=== PATIENT | male | born 1940 | race Caucasian/White ===

== ENCOUNTER 2016-11-17 11:19 | Inpatient (IN) | payer MEDICARE, BC ==
[~2016-11-17] VITALS: Ht 180.3 cm; Wt 80.3 kg
[~2016-11-17 11:19] MED LIST: AMLO5TAB4 PO; ASPI-143 PO; ATOR20TA PO; ATOR40TA59 PO; HYDR25TA9 PO; LEVO25TA4 PO; MIRA50TA PO; PANT40TA3 PO; TERA10CA3 PO
[2016-11-17 13:15] VITALS: BP 124/81
[2016-11-17 14:17] LABS: BASO % 0 % (0-3); EOS % 0 % (0-3); HEMATOCRIT 40.1 % (39.0-53.0); HEMOGLOBIN 12.9 g/dL (13.0-17.5); LYMPH # 0.4 x10^3/uL (1.0-4.8); LYMPH % 5 % (24-48); MEAN CORPUSCULAR HEMOGLOBIN 29 pg (25-35); MEAN CORPUSCULAR HGB CONC 32 g/dL (31-37); MEAN CORPUSCULAR VOLUME 92 fL (79-100); MONO % 2 % (0-9); NEUT % 92 % (31-73); PLATELET COUNT 184 x10^3/uL (140-400); RED BLOOD COUNT 4.37 x10^6/uL (4.30-5.70); RED CELL DISTRIBUTION WIDTH 15.8 % (11.5-14.5); WHITE BLOOD COUNT 7.9 x10^3/uL (4.0-11.0)
--- NOTE | 2016-11-17 14:20 | EKG ---
[facility] [address] [place] [address] Test Date: 2016-11-17 Test Time: 14:19:25 Pat Name: LALO GRIMALDO Department: Room: [facility] Gender: M Glaze Carrier: : 1940 Requested By: KOBE KHAN Order Number: [id number] Reading MD: Measurements Intervals [place] Rate: 63 P: 38 KS: 146 QRS: 6 QRSD: 78 T: 26 QT: 394 QTc: 406 Interpretive Statements SINUS RHYTHM LOW LIMB LEAD VOLTAGE NO SPECIFIC ECG ABNORMALITIES RI6.01 Compared to ECG 08/20/2014 10:59:30 No significant changes
[2016-11-17 14:29] LABS: PROTHROMBIN TIME PATIENT 12.9 SEC (11.7-14.0)
[2016-11-17 14:35] LABS: CALCIUM 9.2 mg/dL (8.5-10.1); CREATININE 1.4 mg/dL (0.7-1.3); GFR 49.3; POTASSIUM 4.3 mmol/L (3.5-5.1)
[2016-11-17 15:00] VITALS: BP 120/78
[2016-11-17 15:26] LABS: % BASOS 1 % (0-3); % EOS 1 % (0-5); PLT ESTIMATE ADEQUATE (ADEQUATE)
--- NOTE | 2016-11-17 16:10 | RAD ---
EXAM: Chest one view. HISTORY: Bronchitis. COMPARISON: 08/20/2014. FINDINGS: A frontal view of the chest is obtained. Hyperinflation suggests chronic obstructive pulmonary disease. There are no confluent infiltrates. Prominence of the right peritracheal stripe is stable and likely from tortuous vasculature. There are atherosclerotic calcifications of the aorta. There is no pneumothorax or pleural effusion. The heart is not enlarged. The cardiac monitoring devices noted. There are chronic healed rib fractures bilaterally. IMPRESSION: 1. Suspect chronic obstructive pulmonary disease. No confluent infiltrates.
[2016-11-17] MEDS ORDERED: ACETAMINOPHEN 325 MG TABLET. PO PRN (17:00)
[2016-11-17] MEDS ORDERED: ONDANSETRON PF 4 MG/2 ML VIAL. IV PRN (17:00)
[2016-11-17] MEDS ORDERED: IV 1/2 NORMAL SALINE 1,000 ML IV ONE (17:00)
[2016-11-17] MEDS ORDERED: HYDROCODONE/APAP 5/325MG TABLET. PO PRN (17:00)
--- NOTE | 2016-11-17 17:02 | PDOC1 ---
History and Physical Date of Admission Date of Admission 11/17/16 Identification/Chief Complaint Chief Complaint weakness Problems: Source Source: Patient History of Present Illness History of Present Illness 76yo M, was sent by his first time PMD dr. Solis from [facility] for generalized weakness. pt is a poor historian, he would just stare at me and not answer anything. PER PMD, pt had ischemic stroke with mild left side weakness in 08/2016. Pt said since last Tuesday, very weak, generalized. No N/V, chest pain, diarrhea. chronic BM incontinence. He was treated for bronchitis in [facility] ER with steroid for 2 days so far, and azithromycin, still c/o cough with mild sputum. daughter said he chokes sometime. low po intake. Pt admit depression, but denies suicide, feeling guilty or down. Past Medical History Cardiovascular: HTN, Hyperlipidemia Pulmonary: COPD CENTRAL NERVOUS SYSTEM: TIA GI: GERD Heme/Onc: Cancer Psych: Anxiety, Addictions, Depression Renal/: Benign prostatic enlarg., Urinary Incontinence Endocrine: Hypothyroidism Past Surgical History Past Surgical History: Other Social History Smoke: <1 pack per day ALCOHOL: none Drugs: None Allergies Allergies Allergies Coded Allergies Type Severity Reaction Last Updated Verified No Known Drug Allergies 06/18/14 No ROS Review of System CONSTITUTIONAL: No fever or chills EYES: No recent changes SKIN: No rash or itching CARDIOVASCULAR: No chest pain, syncope, palpitations, or edema RESPIRATORY: No SOB or cough GASTROINTESTINAL: No nausea, vomiting or abdominal pain NEUROLOGICAL: No headaches or weakness ENDOCRINE: No cold or heat intolerance GENITOURINARY: No urgency or frequency of urination MUSCULOSKELETAL: No back pain or joint pain LYMPHATICS: No enlarged lymph nodes PSYCHIATRIC: No anxiety or depression Physical Exam Physical Exam GEN.: No apparent distress. Alert and oriented. HEENT: Head is normocephalic, atraumatic NECK: Supple. LUNGS: Clear to auscultation. HEART: RRR, S1, S2 present. Peripheral pulses intact ABDOMEN: Soft, nontender. Positive bowel sounds. EXTREMITIES: Without any cyanosis. strength bl symmetric, 4/5. NEUROLOGIC: Normal speech, normal tone PSYCHIATRIC: Normal affect, normal mood. SKIN: No ulcerations Labs Labs Laboratory Tests Test 11/17/16 14:05 White Blood Count 7.9x10^3/uL (4.0-11.0) Red Blood Count 4.37x10^6/uL (4.30-5.70) Hemoglobin 12.9g/dL (13.0-17.5) Hematocrit 40.1% (39.0-53.0) Mean Corpuscular Volume 92fL (79-100) Mean Corpuscular Hemoglobin 29pg (25-35) Mean Corpuscular Hemoglobin Concent 32g/dL (31-37) Red Cell Distribution Width 15.8% (11.5-14.5) Platelet Count 184x10^3/uL (140-400) Neutrophils (%) (Auto) 92% (31-73) Lymphocytes (%) (Auto) 5% (24-48) Monocytes (%) (Auto) 2% (0-9) Eosinophils (%) (Auto) 0% (0-3) Basophils (%) (Auto) 0% (0-3) Neutrophils # (Auto) 7.3x10^3uL (1.8-7.7) Lymphocytes # (Auto) 0.4x10^3/uL (1.0-4.8) Monocytes # (Auto) 0.2x10^3/uL (0.0-1.1) Eosinophils # (Auto) 0.0x10^3/uL (0.0-0.7) Basophils # (Auto) 0.0x10^3/uL (0.0-0.2) Segmented Neutrophils % 92% (35-66) Band Neutrophils % 2% (0-9) Lymphocytes % 4% (24-48) Eosinophils % 1% (0-5) Basophils % 1% (0-3) Platelet Estimate Adequate (ADEQUATE) Prothrombin Time 12.9SEC (11.7-14.0) Prothromb Time International Ratio 1.0 (0.8-1.1) Sodium Level 146mmol/L (136-145) Potassium Level 4.3mmol/L (3.5-5.1) Chloride Level 110mmol/L (98-107) Carbon Dioxide Level 28mmol/L (21-32) Anion Gap 8 (6-14) Blood Urea Nitrogen 30mg/dL (8-26) Creatinine 1.4mg/dL (0.7-1.3) Estimated GFR (Cockcroft-Gault) 49.3 Glucose Level 101mg/dL (70-99) Calcium Level 9.2mg/dL (8.5-10.1) Vitamin B12 Level 590pg/mL (247-911) Thyroid Stimulating Hormone (TSH) 1.594uIU/mL (0.358-3.74) Laboratory Tests Test 11/17/16 14:05 White Blood Count 7.9x10^3/uL (4.0-11.0) Red Blood Count 4.37x10^6/uL (4.30-5.70) Hemoglobin 12.9g/dL (13.0-17.5) Hematocrit 40.1% (39.0-53.0) Mean Corpuscular Volume 92fL (79-100) Mean Corpuscular Hemoglobin 29pg (25-35) Mean Corpuscular Hemoglobin Concent 32g/dL (31-37) Red Cell Distribution Width 15.8% (11.5-14.5) Platelet Count 184x10^3/uL (140-400) Neutrophils (%) (Auto) 92% (31-73) Lymphocytes (%) (Auto) 5% (24-48) Monocytes (%) (Auto) 2% (0-9) Eosinophils (%) (Auto) 0% (0-3) Basophils (%) (Auto) 0% (0-3) Neutrophils # (Auto) 7.3x10^3uL (1.8-7.7) Lymphocytes # (Auto) 0.4x10^3/uL (1.0-4.8) Monocytes # (Auto) 0.2x10^3/uL (0.0-1.1) Eosinophils # (Auto) 0.0x10^3/uL (0.0-0.7) Basophils # (Auto) 0.0x10^3/uL (0.0-0.2) Segmented Neutrophils % 92% (35-66) Band Neutrophils % 2% (0-9) Lymphocytes % 4% (24-48) Eosinophils % 1% (0-5) Basophils % 1% (0-3) Platelet Estimate Adequate (ADEQUATE) Prothrombin Time 12.9SEC (11.7-14.0) Prothromb Time International Ratio 1.0 (0.8-1.1) Sodium Level 146mmol/L (136-145) Potassium Level 4.3mmol/L (3.5-5.1) Chloride Level 110mmol/L (98-107) Carbon Dioxide Level 28mmol/L (21-32) Anion Gap 8 (6-14) Blood Urea Nitrogen 30mg/dL (8-26) Creatinine 1.4mg/dL (0.7-1.3) Estimated GFR (Cockcroft-Gault) 49.3 Glucose Level 101mg/dL (70-99) Calcium Level 9.2mg/dL (8.5-10.1) Vitamin B12 Level 590pg/mL (247-911) Thyroid Stimulating Hormone (TSH) 1.594uIU/mL (0.358-3.74) VTE Prophylaxis Ordered VTE Prophylaxis Devices: Yes VTE Pharmacological Prophylaxi: Yes Assessment/Plan Assessment/Plan 1. generalized weakness 2. h/o STROKE with mild left weakness 3. COpd 4. bronchitis 5. CKD3 6. hypothyroidism 7. htn 8. hld 9. mild dysphagia 10. depression plan: 1. check cbc, bmp, tsh, b12 2. neuro consult 3. ptot 4. SW for rehab if needed later 5. cont home meds, finish prednisone and susy for another 3ds add lexapra swallow eval 1/2 Saline for 1 L DUONEB dvt ppx add KOBE Santa MD Nov 17, 2016 17:02
[2016-11-17] MEDS ORDERED: ALBUTEROL SULFATE 2.5 MG/3 ML NEBU. NEB PRN (17:15)
[2016-11-17] MEDS ORDERED: CHOL500050 PO (17:47)
[2016-11-17] MEDS ORDERED: OXYB10TA PO (17:47)
[2016-11-17] MEDS ORDERED: B12/1TAB2 PO (17:47)
[2016-11-17] MEDS: PREDNISONE 20 MG TABLET PO SCH (17:49)
[2016-11-17 19:00] VITALS: BP 123/75
--- NOTE | 2016-11-17 19:12 | PDOC2 ---
NEUROLOGY CONSULT Date of Admission Date of Admission DATE: 11/17/16 TIME: 19:05 Reason for Consult Reason for Consult: IMPRESSION: Generalized weakness x 4 days. Hypothyroidism. HTN HLD COPD Anxiety Depression Smoking Cardiac Mettronic in place. RECOMMENDATIONS/PLAN: C-spine CT w/o contrast. Lab: see orders. Treat medical diseases. OT/PT. HISTORY OF THE PRESENT ILLNESS: 76-y-old Male patient with above medical disease developed symptoms of generalized weakness for 4 days before admission. His cranial nerves are not affected. No sensory deficits. No urinary or bowel dysfunction. PAST MEDICAL HISTORY: Please see above. PAST SURGERY HISTORY: No major surgery recently. ALLERGY: Unknown MEDICATIONS: Refer to [facility] HISTORY: Non contributory. SOCIAL HISTORY: Denies current drinking and illicit drug use. He smokes < 1 pack a day. REVIEW OF SYSTEMS: Constitutional: No malnutrition, weight loss, cachexia. Head: No traumatic brain or head injury. Skin: No edema, or rash. Ear: No infection, tinnitus. Eyes: No vision loss or color blindness. Nose: No bleeding or purulent discharges. Hearing: Hearing decrease. Neck: No injury. Cardiac: HTN, HLD. Pulmonary: COPD GI: No GI ulcer, GI bleeding. Urinary/genital: BPH Endocrinologic: hypothyroidism. Skeletomuscular: Generalized weakness. Neurological: see HP. Psychiatric: Denies drug use/abuse. Otherwise, not -ijdrs review of systems. PHYSICAL EXAMINATION: General appearance is in subacute distress. HEENT: Normocephalic and nontraumatic. Eyes, nose, ears, and throat are unremarkable. Neck is supple. No lymphadenopathy. No crepitus. Cardiovascular: S1, S2, regular rate and rhythm. Pulmonary: Clear to auscultation bilaterally. Abdomen: Bowel sounds are positive. Abdomen is soft, nontender, and nondistended. Extremities: No rash, lesions, or edema. No restriction of range of motion NEUROLOGICAL EXAMINATION: Alert Oriented to time, place and person. PERRL. EOMI. CN: no focal findings. Muscle tone: within normal. Muscle strength: 4 DTR: 2 Plantar reflex: Flexor response bilaterally Gait: not examined in bed. Sensory exam: no abnormal findings. No cerebellar signs elicited. F-T-N test fine. Current Medications Current Medications Current Medications Ondansetron HCl (Zofran) 4 mg PRN Q6HRS PRN IV NAUSEA/VOMITING; Start 11/17/16 at 17:00 Acetaminophen/ Hydrocodone Bitart (Lortab 5/325) 1 tab PRN Q4HRS PRN PO MILD PAIN; Start 11/17/16 at 17:00 Acetaminophen (Tylenol) 650 mg PRN Q6HRS PRN PO MILD PAIN / TEMP; Start at 17:00 Heparin Sodium (Porcine) 5000 unit 5,000 unit Q8HRS SQ ; Start 11/17/16 at 22:00 Sodium Chloride (Iv Sodium Chloride 0.45%) 1,000 ml @ 100 mls/hr 1X ONCE IV ; Start 11/17/16 at 17:00; Stop 11/18/16 at 02:59 Escitalopram Oxalate (Lexapro) 10 mg DAILY PO ; Start 11/18/16 at 09:00 Doxycycline Hyclate (Vibra-Tab) 100 mg BID PO ; Start 11/17/16 at 21:00 Albuterol Sulfate (Ventolin Neb Soln) 2.5 mg PRN Q4HRS PRN NEB SHORTNESS OF BREATH; Start 11/17/16 at 17:15 Albuterol/ Ipratropium (Duoneb) 3 ml RTQID NEB ; Start 11/17/16 at 20:00 Azithromycin (Zithromax) 250 mg DAILY PO ; Start 11/17/16 at 18:30 Prednisone (Prednisone) 60 mg DAILYWBKFT PO ; Start 11/17/16 at 18:30; Stop 11/19 at 08:01 Active Scripts Active Lite Coat Aspirin (Aspirin) 325 Mg Tablet 325 Mg PO DAILY PRN 30 Days Atorvastatin Calcium 40 Mg Tablet 1 Tab PO DAILY PRN 30 Days Reported Vitamin D (Cholecalciferol (Vitamin D3)) 50,000 Unit Capsule 50,000 Unit PO WEEKLY Utyjt-Cbkfqnrllb-Arnffzfgc Tb (B12/Levomefolate Calcium/B-6) 1 Each Tablet 1 Each PO DAILY08 Oxybutynin Chloride Er (Oxybutynin Chloride) 10 Mg Tab.er.24 10 Mg PO HS PRN Levothyroxine Sodium 25 Mcg Tablet 25 Mcg PO DAILYAC Allergies Allergies: Coded Allergies: No Known Drug Allergies (Unverified , 06/18/14) Vitals VITALS Vital Signs Date Time Temp Pulse Resp B/P Pulse Ox O2 Delivery O2 Flow Rate FiO2 11/17/16 15:00 96.1 66 18 120/78 96 Room Air 96.1 Labs Labs Laboratory Tests Test 11/17/16 14:05 White Blood Count 7.9x10^3/uL (4.0-11.0) Red Blood Count 4.37x10^6/uL (4.30-5.70) Hemoglobin 12.9g/dL (13.0-17.5) Hematocrit 40.1% (39.0-53.0) Mean Corpuscular Volume 92fL (79-100) Mean Corpuscular Hemoglobin 29pg (25-35) Mean Corpuscular Hemoglobin Concent 32g/dL (31-37) Red Cell Distribution Width 15.8% (11.5-14.5) Platelet Count 184x10^3/uL (140-400) Neutrophils (%) (Auto) 92% (31-73) Lymphocytes (%) (Auto) 5% (24-48) Monocytes (%) (Auto) 2% (0-9) Eosinophils (%) (Auto) 0% (0-3) Basophils (%) (Auto) 0% (0-3) Neutrophils # (Auto) 7.3x10^3uL (1.8-7.7) Lymphocytes # (Auto) 0.4x10^3/uL (1.0-4.8) Monocytes # (Auto) 0.2x10^3/uL (0.0-1.1) Eosinophils # (Auto) 0.0x10^3/uL (0.0-0.7) Basophils # (Auto) 0.0x10^3/uL (0.0-0.2) Segmented Neutrophils % 92% (35-66) Band Neutrophils % 2% (0-9) Lymphocytes % 4% (24-48) Eosinophils % 1% (0-5) Basophils % 1% (0-3) Platelet Estimate Adequate (ADEQUATE) Prothrombin Time 12.9SEC (11.7-14.0) Prothromb Time International Ratio 1.0 (0.8-1.1) Sodium Level 146mmol/L (136-145) Potassium Level 4.3mmol/L (3.5-5.1) Chloride Level 110mmol/L (98-107) Carbon Dioxide Level 28mmol/L (21-32) Anion Gap 8 (6-14) Blood Urea Nitrogen 30mg/dL (8-26) Creatinine 1.4mg/dL (0.7-1.3) Estimated GFR (Cockcroft-Gault) 49.3 Glucose Level 101mg/dL (70-99) Calcium Level 9.2mg/dL (8.5-10.1) Creatine Kinase 20U/L (39-308) Vitamin B12 Level 590pg/mL (247-911) Thyroid Stimulating Hormone (TSH) 1.594uIU/mL (0.358-3.74) Laboratory Tests Test 11/17/16 14:05 White Blood Count 7.9x10^3/uL (4.0-11.0) Red Blood Count 4.37x10^6/uL (4.30-5.70) Hemoglobin 12.9g/dL (13.0-17.5) Hematocrit 40.1% (39.0-53.0) Mean Corpuscular Volume 92fL (79-100) Mean Corpuscular Hemoglobin 29pg (25-35) Mean Corpuscular Hemoglobin Concent 32g/dL (31-37) Red Cell Distribution Width 15.8% (11.5-14.5) Platelet Count 184x10^3/uL (140-400) Neutrophils (%) (Auto) 92% (31-73) Lymphocytes (%) (Auto) 5% (24-48) Monocytes (%) (Auto) 2% (0-9) Eosinophils (%) (Auto) 0% (0-3) Basophils (%) (Auto) 0% (0-3) Neutrophils # (Auto) 7.3x10^3uL (1.8-7.7) Lymphocytes # (Auto) 0.4x10^3/uL (1.0-4.8) Monocytes # (Auto) 0.2x10^3/uL (0.0-1.1) Eosinophils # (Auto) 0.0x10^3/uL (0.0-0.7) Basophils # (Auto) 0.0x10^3/uL (0.0-0.2) Segmented Neutrophils % 92% (35-66) Band Neutrophils % 2% (0-9) Lymphocytes % 4% (24-48) Eosinophils % 1% (0-5) Basophils % 1% (0-3) Platelet Estimate Adequate (ADEQUATE) Prothrombin Time 12.9SEC (11.7-14.0) Prothromb Time International Ratio 1.0 (0.8-1.1) Sodium Level 146mmol/L (136-145) Potassium Level 4.3mmol/L (3.5-5.1) Chloride Level 110mmol/L (98-107) Carbon Dioxide Level 28mmol/L (21-32) Anion Gap 8 (6-14) Blood Urea Nitrogen 30mg/dL (8-26) Creatinine 1.4mg/dL (0.7-1.3) Estimated GFR (Cockcroft-Gault) 49.3 Glucose Level 101mg/dL (70-99) Calcium Level 9.2mg/dL (8.5-10.1) Creatine Kinase 20U/L (39-308) Vitamin B12 Level 590pg/mL (247-911) Thyroid Stimulating Hormone (TSH) 1.594uIU/mL (0.358-3.74) HAILEY PAGAN MD Nov 17, 2016 19:12
[2016-11-17] MEDS: IPRATRPIUM/ALBUTEROL 0.5/2.5MG 3 ML NEBU. NEB SCH (19:24)
[2016-11-17] MEDS: AZITHROMYCIN 250 MG TABLET PO SCH (19:38)
[2016-11-17] MEDS: DOXYCYCLINE HYCLATE 100 MG TABLET PO SCH (21:15)
[2016-11-17] MEDS: HEPARIN PF for SUB-Q USE 5,000 UNIT/0.5 ML VIAL. SQ SCH (21:21)
[2016-11-17 23:00] VITALS: BP 153/78
[2016-11-18 03:00] VITALS: BP 114/63
[2016-11-18 04:28] LABS: BASO % 0 % (0-3); EOS % 1 % (0-3); HEMATOCRIT 34.9 % (39.0-53.0); HEMOGLOBIN 11.6 g/dL (13.0-17.5); LYMPH # 1.6 x10^3/uL (1.0-4.8); LYMPH % 15 % (24-48); MEAN CORPUSCULAR HEMOGLOBIN 29 pg (25-35); MEAN CORPUSCULAR HGB CONC 33 g/dL (31-37); MEAN CORPUSCULAR VOLUME 89 fL (79-100); MONO % 9 % (0-9); NEUT % 75 % (31-73); PLATELET COUNT 189 x10^3/uL (140-400); RED BLOOD COUNT 3.93 x10^6/uL (4.30-5.70); RED CELL DISTRIBUTION WIDTH 15.5 % (11.5-14.5); WHITE BLOOD COUNT 10.7 x10^3/uL (4.0-11.0)
[2016-11-18 04:43] LABS: CALCIUM 8.8 mg/dL (8.5-10.1); CREATININE 1.1 mg/dL (0.7-1.3); GFR 65.1; POTASSIUM 4.2 mmol/L (3.5-5.1)
[2016-11-18] MEDS: HEPARIN PF for SUB-Q USE 5,000 UNIT/0.5 ML VIAL. SQ SCH ×3 (05:55→20:48)
[2016-11-18 07:00] VITALS: BP 139/73
[2016-11-18] MEDS: IPRATRPIUM/ALBUTEROL 0.5/2.5MG 3 ML NEBU. NEB SCH ×4 (07:23→20:48)
--- NOTE | 2016-11-18 08:40 | RAD ---
EXAM: CT cervical spine without contrast. HISTORY: Upper and lower extremity weakness. TECHNIQUE: Computed tomography of the cervical spine was performed without intravenous contrast. COMPARISON: None. FINDINGS: Alignment is maintained. There is moderate osteoarthritis at C1-2. No fractures are identified. Degenerative disc disease is moderate to severe at C4-5, moderate from C5 through C7 and mild more superiorly. There is no prevertebral soft tissue swelling. Images of the lung apices reveal at least mild centrilobular emphysema. There are atherosclerotic calcifications bilaterally at the carotid bulbs. At C2-3, there is a small posterior disc bulge. Facet osteoarthritis is moderate on the left and mild on the right. Uncovertebral osteoarthritis is mild bilaterally. Left foraminal stenosis is mild. At C3-4, there is a small posterior disc bulge. Uncovertebral osteoarthritis is mild on the right greater than left. Facet osteoarthritis is moderate on the right greater than left. Foraminal stenosis is mild on the right. At C4-5, there is a moderate posterior disc-osteophyte complex. Uncovertebral osteoarthritis is moderate bilaterally. Central canal stenosis is mild. Foraminal stenosis is moderate on the left and mild on the right. There is moderate right lateral recess stenosis. At C5-6, there is a small posterior disc-osteophyte complex. Uncovertebral osteoarthritis is moderate to severe on the right greater than left. Foraminal stenosis is moderate on the left and moderate to severe on the right. At C6-7, there is a small posterior disc-osteophyte complex. Uncovertebral osteoarthritis is moderate bilaterally. Foraminal stenosis is mild on the right and moderate on the left. IMPRESSION: 1. Central canal stenosis is mild at C4-5. 2. Multilevel bilateral foraminal stenosis is a [id number] to severe on the right at C5-6. It is mild to moderate elsewhere as above. 3. Degenerative disc disease is moderate to severe at C4-5, moderate from C5 through C7 and mild more superiorly. 4. At least mild centrilobular emphysema in the apices. *One or more of the following individualized dose reduction techniques were utilized for this examination: 1. Automated exposure control. 2. Adjustment of the mA and/or kV according to patient size. 3. Use of iterative reconstruction technique.
[2016-11-18] MEDS: DOXYCYCLINE HYCLATE 100 MG TABLET PO SCH ×2 (09:01→20:43)
[2016-11-18] MEDS: PREDNISONE 20 MG TABLET PO SCH (09:02)
[2016-11-18] MEDS: ESCITALOPRAM 10 MG TABLET. PO SCH (09:02)
[2016-11-18] MEDS: AZITHROMYCIN 250 MG TABLET PO SCH (09:02)
[2016-11-18 11:00] VITALS: BP 126/67
[2016-11-18] MEDS ORDERED: BARIUM SULFATE 40% (APPLE) 148 GM PWD. PO ONE (12:30)
--- NOTE | 2016-11-18 12:42 | PDOC ---
PROGRESS NOTES Chief Complaint Chief Complaint 1. generalized weakness 2. s/p recnt STROKE with mild left weakness, post CVA syndrome 3. COPD 4. bronchitis 5. CKD3 6. hypothyroidism 7. htn 8. hld 9. mild dysphagia 10. depression History of Present Illness History of Present Illness PT and OT speech therapy, video swallow today plan home health had been in rehab many weeks new PCP Vitals Vitals Vital Signs Date Time Temp Pulse Resp B/P Pulse Ox O2 Delivery O2 Flow Rate FiO2 11/18/16 11:20 90 Room Air 11/18/16 11:00 97.6 60 16 126/67 97.6 Physical Exam General: Alert Heart: Regular rate, Normal S1, Normal S2 Lungs: Other (rales, mod volume) Abdomen: Normal bowel sounds Extremities: No clubbing Skin: No rashes Labs LABS Laboratory Tests Test 11/17/16 14:05 11/18/16 03:50 White Blood Count 7.9x10^3/uL (4.0-11.0) 10.7x10^3/uL (4.0-11.0) Red Blood Count 4.37x10^6/uL (4.30-5.70) 3.93x10^6/uL (4.30-5.70) Hemoglobin 12.9g/dL (13.0-17.5) 11.6g/dL (13.0-17.5) Hematocrit 40.1% (39.0-53.0) 34.9% (39.0-53.0) Mean Corpuscular Volume 92fL (79-100) 89fL (79-100) Mean Corpuscular Hemoglobin 29pg (25-35) 29pg (25-35) Mean Corpuscular Hemoglobin Concent 32g/dL (31-37) 33g/dL (31-37) Red Cell Distribution Width 15.8% (11.5-14.5) 15.5% (11.5-14.5) Platelet Count 184x10^3/uL (140-400) 189x10^3/uL (140-400) Neutrophils (%) (Auto) 92% (31-73) 75% (31-73) Lymphocytes (%) (Auto) 5% (24-48) 15% (24-48) Monocytes (%) (Auto) 2% (0-9) 9% (0-9) Eosinophils (%) (Auto) 0% (0-3) 1% (0-3) Basophils (%) (Auto) 0% (0-3) 0% (0-3) Neutrophils # (Auto) 7.3x10^3uL (1.8-7.7) 8.0x10^3uL (1.8-7.7) Lymphocytes # (Auto) 0.4x10^3/uL (1.0-4.8) 1.6x10^3/uL (1.0-4.8) Monocytes # (Auto) 0.2x10^3/uL (0.0-1.1) 1.0x10^3/uL (0.0-1.1) Eosinophils # (Auto) 0.0x10^3/uL (0.0-0.7) 0.1x10^3/uL (0.0-0.7) Basophils # (Auto) 0.0x10^3/uL (0.0-0.2) 0.0x10^3/uL (0.0-0.2) Segmented Neutrophils % 92% (35-66) Band Neutrophils % 2% (0-9) Lymphocytes % 4% (24-48) Eosinophils % 1% (0-5) Basophils % 1% (0-3) Platelet Estimate Adequate (ADEQUATE) Prothrombin Time 12.9SEC (11.7-14.0) Prothromb Time International Ratio 1.0 (0.8-1.1) Sodium Level 146mmol/L (136-145) 145mmol/L (136-145) Potassium Level 4.3mmol/L (3.5-5.1) 4.2mmol/L (3.5-5.1) Chloride Level 110mmol/L (98-107) 109mmol/L (98-107) Carbon Dioxide Level 28mmol/L (21-32) 25mmol/L (21-32) Anion Gap 8 (6-14) 11 (6-14) Blood Urea Nitrogen 30mg/dL (8-26) 26mg/dL (8-26) Creatinine 1.4mg/dL (0.7-1.3) 1.1mg/dL (0.7-1.3) Estimated GFR (Cockcroft-Gault) 49.3 65.1 Glucose Level 101mg/dL (70-99) 102mg/dL (70-99) Calcium Level 9.2mg/dL (8.5-10.1) 8.8mg/dL (8.5-10.1) Creatine Kinase 20U/L (39-308) Vitamin B12 Level 590pg/mL (247-911) 25-Hydroxy Vitamin D Total 46.2ng/mL (30.0-100.0) Thyroid Stimulating Hormone (TSH) 1.594uIU/mL (0.358-3.74) Review of Systems Review of Systems no nv.d Assessment and Plan Assessmemt and Plan Problems Medical Problems: (1) Generalized weakness Status: Acute Problems: Comment Review of Relevant I have reviewed the following items josse (where applicable) has been applied. Labs Laboratory Tests Test 11/17/16 14:05 11/18/16 03:50 White Blood Count 7.9x10^3/uL (4.0-11.0) 10.7x10^3/uL (4.0-11.0) Red Blood Count 4.37x10^6/uL (4.30-5.70) 3.93x10^6/uL (4.30-5.70) Hemoglobin 12.9g/dL (13.0-17.5) 11.6g/dL (13.0-17.5) Hematocrit 40.1% (39.0-53.0) 34.9% (39.0-53.0) Mean Corpuscular Volume 92fL (79-100) 89fL (79-100) Mean Corpuscular Hemoglobin 29pg (25-35) 29pg (25-35) Mean Corpuscular Hemoglobin Concent 32g/dL (31-37) 33g/dL (31-37) Red Cell Distribution Width 15.8% (11.5-14.5) 15.5% (11.5-14.5) Platelet Count 184x10^3/uL (140-400) 189x10^3/uL (140-400) Neutrophils (%) (Auto) 92% (31-73) 75% (31-73) Lymphocytes (%) (Auto) 5% (24-48) 15% (24-48) Monocytes (%) (Auto) 2% (0-9) 9% (0-9) Eosinophils (%) (Auto) 0% (0-3) 1% (0-3) Basophils (%) (Auto) 0% (0-3) 0% (0-3) Neutrophils # (Auto) 7.3x10^3uL (1.8-7.7) 8.0x10^3uL (1.8-7.7) Lymphocytes # (Auto) 0.4x10^3/uL (1.0-4.8) 1.6x10^3/uL (1.0-4.8) Monocytes # (Auto) 0.2x10^3/uL (0.0-1.1) 1.0x10^3/uL (0.0-1.1) Eosinophils # (Auto) 0.0x10^3/uL (0.0-0.7) 0.1x10^3/uL (0.0-0.7) Basophils # (Auto) 0.0x10^3/uL (0.0-0.2) 0.0x10^3/uL (0.0-0.2) Segmented Neutrophils % 92% (35-66) Band Neutrophils % 2% (0-9) Lymphocytes % 4% (24-48) Eosinophils % 1% (0-5) Basophils % 1% (0-3) Platelet Estimate Adequate (ADEQUATE) Prothrombin Time 12.9SEC (11.7-14.0) Prothromb Time International Ratio 1.0 (0.8-1.1) Sodium Level 146mmol/L (136-145) 145mmol/L (136-145) Potassium Level 4.3mmol/L (3.5-5.1) 4.2mmol/L (3.5-5.1) Chloride Level 110mmol/L (98-107) 109mmol/L (98-107) Carbon Dioxide Level 28mmol/L (21-32) 25mmol/L (21-32) Anion Gap 8 (6-14) 11 (6-14) Blood Urea Nitrogen 30mg/dL (8-26) 26mg/dL (8-26) Creatinine 1.4mg/dL (0.7-1.3) 1.1mg/dL (0.7-1.3) Estimated GFR (Cockcroft-Gault) 49.3 65.1 Glucose Level 101mg/dL (70-99) 102mg/dL (70-99) Calcium Level 9.2mg/dL (8.5-10.1) 8.8mg/dL (8.5-10.1) Creatine Kinase 20U/L (39-308) Vitamin B12 Level 590pg/mL (247-911) 25-Hydroxy Vitamin D Total 46.2ng/mL (30.0-100.0) Thyroid Stimulating Hormone (TSH) 1.594uIU/mL (0.358-3.74) Laboratory Tests Test 11/17/16 14:05 11/18/16 03:50 White Blood Count 7.9x10^3/uL (4.0-11.0) 10.7x10^3/uL (4.0-11.0) Red Blood Count 4.37x10^6/uL (4.30-5.70) 3.93x10^6/uL (4.30-5.70) Hemoglobin 12.9g/dL (13.0-17.5) 11.6g/dL (13.0-17.5) Hematocrit 40.1% (39.0-53.0) 34.9% (39.0-53.0) Mean Corpuscular Volume 92fL (79-100) 89fL (79-100) Mean Corpuscular Hemoglobin 29pg (25-35) 29pg (25-35) Mean Corpuscular Hemoglobin Concent 32g/dL (31-37) 33g/dL (31-37) Red Cell Distribution Width 15.8% (11.5-14.5) 15.5% (11.5-14.5) Platelet Count 184x10^3/uL (140-400) 189x10^3/uL (140-400) Neutrophils (%) (Auto) 92% (31-73) 75% (31-73) Lymphocytes (%) (Auto) 5% (24-48) 15% (24-48) Monocytes (%) (Auto) 2% (0-9) 9% (0-9) Eosinophils (%) (Auto) 0% (0-3) 1% (0-3) Basophils (%) (Auto) 0% (0-3) 0% (0-3) Neutrophils # (Auto) 7.3x10^3uL (1.8-7.7) 8.0x10^3uL (1.8-7.7) Lymphocytes # (Auto) 0.4x10^3/uL (1.0-4.8) 1.6x10^3/uL (1.0-4.8) Monocytes # (Auto) 0.2x10^3/uL (0.0-1.1) 1.0x10^3/uL (0.0-1.1) Eosinophils # (Auto) 0.0x10^3/uL (0.0-0.7) 0.1x10^3/uL (0.0-0.7) Basophils # (Auto) 0.0x10^3/uL (0.0-0.2) 0.0x10^3/uL (0.0-0.2) Segmented Neutrophils % 92% (35-66) Band Neutrophils % 2% (0-9) Lymphocytes % 4% (24-48) Eosinophils % 1% (0-5) Basophils % 1% (0-3) Platelet Estimate Adequate (ADEQUATE) Prothrombin Time 12.9SEC (11.7-14.0) Prothromb Time International Ratio 1.0 (0.8-1.1) Sodium Level 146mmol/L (136-145) 145mmol/L (136-145) Potassium Level 4.3mmol/L (3.5-5.1) 4.2mmol/L (3.5-5.1) Chloride Level 110mmol/L (98-107) 109mmol/L (98-107) Carbon Dioxide Level 28mmol/L (21-32) 25mmol/L (21-32) Anion Gap 8 (6-14) 11 (6-14) Blood Urea Nitrogen 30mg/dL (8-26) 26mg/dL (8-26) Creatinine 1.4mg/dL (0.7-1.3) 1.1mg/dL (0.7-1.3) Estimated GFR (Cockcroft-Gault) 49.3 65.1 Glucose Level 101mg/dL (70-99) 102mg/dL (70-99) Calcium Level 9.2mg/dL (8.5-10.1) 8.8mg/dL (8.5-10.1) Creatine Kinase 20U/L (39-308) Vitamin B12 Level 590pg/mL (247-911) 25-Hydroxy Vitamin D Total 46.2ng/mL (30.0-100.0) Thyroid Stimulating Hormone (TSH) 1.594uIU/mL (0.358-3.74) Medications Current Medications Ondansetron HCl (Zofran) 4 mg PRN Q6HRS PRN IV NAUSEA/VOMITING; Start 11/17/16 at 17:00 Acetaminophen/ Hydrocodone Bitart (Lortab 5/325) 1 tab PRN Q4HRS PRN PO MILD PAIN Last administered on 11/17/16 23:17; Start 11/17/16 at 17:00 Acetaminophen (Tylenol) 650 mg PRN Q6HRS PRN PO MILD PAIN / TEMP; Start at 17:00 Heparin Sodium (Porcine) 5000 unit 5,000 unit Q8HRS SQ Last administered on 11/18 05:55; Start 11/17/16 at 22:00 Sodium Chloride (Iv Sodium Chloride 0.45%) 1,000 ml @ 100 mls/hr 1X ONCE IV Last administered on 11/17/16 21:16; Start 11/17/16 at 17:00; Stop 11/18/16 at 02: 59; Status DC Escitalopram Oxalate (Lexapro) 10 mg DAILY PO Last administered on 11/18/16 09: 02; Start 11/18/16 at 09:00 Doxycycline Hyclate (Vibra-Tab) 100 mg BID PO Last administered on 11/18/16 09: 01; Start 11/17/16 at 21:00 Albuterol Sulfate (Ventolin Neb Soln) 2.5 mg PRN Q4HRS PRN NEB SHORTNESS OF BREATH; Start 11/17/16 at 17:15 Albuterol/ Ipratropium (Duoneb) 3 ml RTQID NEB Last administered on 11/18/16 11 :18; Start 11/17/16 at 20:00 Azithromycin (Zithromax) 250 mg DAILY PO Last administered on 11/18/16 09:02; Start 11/17/16 at 18:30 Prednisone (Prednisone) 60 mg DAILYWBKFT PO Last administered on 11/18/16 09:02 ; Start 11/17/16 at 18:30; Stop 11/19/16 at 08:01 Barium Sulfate (Varibar Thin Liquid) 148 gm 1X ONCE PO ; Start 11/18/16 at 12:30 ; Stop 11/18/16 at 12:31; Status DC Active Scripts Active Lite Coat Aspirin (Aspirin) 325 Mg Tablet 325 Mg PO DAILY PRN 30 Days Atorvastatin Calcium 40 Mg Tablet 1 Tab PO DAILY PRN 30 Days Reported Vitamin D (Cholecalciferol (Vitamin D3)) 50,000 Unit Capsule 50,000 Unit PO WEEKLY Rjbsa-Gecodilmou-Jodnxumkg Tb (B12/Levomefolate Calcium/B-6) 1 Each Tablet 1 Each PO DAILY08 Oxybutynin Chloride Er (Oxybutynin Chloride) 10 Mg Tab.er.24 10 Mg PO HS PRN Levothyroxine Sodium 25 Mcg Tablet 25 Mcg PO DAILYAC Vitals/I & O Vital Sign - Last 24 Hours 11/17/16 11/17/16 11/17/16 11/17/16 13:15 15:00 19:00 19:26 Temp 96.3 96.1 98.6 96.3 96.1 98.6 Pulse 70 66 68 Resp 18 18 18 B/P 124/81 120/78 123/75 Pulse Ox 98 96 96 97 O2 Delivery Room Air Room Air Room Air Room Air 11/17/16 11/17/16 11/17/16 11/18/16 19:35 23:00 23:17 00:15 Temp 97.8 97.8 Pulse 77 Resp 18 16 14 B/P 153/78 Pulse Ox 93 O2 Delivery Room Air Room Air Room Air Room Air 11/18/16 11/18/16 11/18/16 11/18/16 03:00 07:00 08:00 11:00 Temp 97.5 98.1 97.6 97.5 98.1 97.6 Pulse 65 61 60 Resp 18 18 16 B/P 114/63 139/73 126/67 Pulse Ox 94 98 97 O2 Delivery Room Air Room Air Room Air Room Air 11/18/16 11:20 Pulse Ox 90 O2 Delivery Room Air Intake and Output 11/17/16 11/17/16 11/18/16 15:00 23:00 07:00 Intake Total 1100 ml Balance 1100 ml ADRI POWELL MD Nov 18, 2016 12:42
--- NOTE | 2016-11-18 13:36 | RAD ---
Video dysphasia study, 11/18/2016: History: Silent aspiration The swallowing mechanism was examined fluoroscopically in the lateral projection while the patient ingested a variety of food materials mixed with barium. 3.8 minutes of fluoroscopy time was utilized. One fluoroscopic video loop was recorded by a member of the speech Department. The patient demonstrated slow transit of the barium materials from the mouth into the hypopharynx. There also tended to be a moderate delay in initiation of pharyngeal peristalsis with material spilling from the vallecula into the piriform sinuses. When ingesting the thin liquids there was a small amount of anisa aspiration into the trachea during swallowing. This did not elicit a cough reflex. This also occurred when the chin tuck maneuver was utilized. With the nectar consistency material was utilized there was deep laryngeal penetration without anisa aspiration. The patient ingested the honey thickened material without significant laryngeal penetration or aspiration. With the thicker materials and barium coated solids there tended to be a small to moderate amount of intermittent vallecular and piriform sinus residue. IMPRESSION: Aspiration of the thin liquids which abated when the thicker materials were utilized.
--- NOTE | 2016-11-18 14:39 | PDOC ---
PROGRESS NOTES Assessment Assessment Generalized weakness x 4 days. Hypothyroidism. HTN HLD COPD Anxiety Depression Smoking Degenerative spine and disc disease. C-spinal stenosis. Cardiac Meteronic in place. RECOMMENDATIONS/PLAN: Treat medical diseases. Please consult Dr. Coombs. OT/PT. C-spine CT: Degenerative C-spine and disc disease. Spinal stenosis. HISTORY OF THE PRESENT ILLNESS: 76-y-old Male patient with above medical disease developed symptoms of generalized weakness for 4 days before admission. His cranial nerves are not affected. No sensory deficits. No urinary or bowel dysfunction. Generalized weakness improved in some degree on 11/18. PAST MEDICAL HISTORY: Please see above. PAST SURGERY HISTORY: No major surgery recently. ALLERGY: Unknown MEDICATIONS: Refer to [facility] FAMILY HISTORY: Non contributory. SOCIAL HISTORY: Denies current drinking and illicit drug use. He smokes < 1 pack a day. REVIEW OF SYSTEMS: Constitutional: No malnutrition, weight loss, cachexia. Head: No traumatic brain or head injury. Skin: No edema, or rash. Ear: No infection, tinnitus. Eyes: No vision loss or color blindness. Nose: No bleeding or purulent discharges. Hearing: Hearing decrease. Neck: No injury. Cardiac: HTN, HLD. Pulmonary: COPD GI: No GI ulcer, GI bleeding. Urinary/genital: BPH Endocrinologic: hypothyroidism. Skeletomuscular: Generalized weakness. Neurological: see HP. Psychiatric: Denies drug use/abuse. Otherwise, not [id number] review of systems. PHYSICAL EXAMINATION: General appearance is in subacute distress. HEENT: Normocephalic and nontraumatic. Eyes, nose, ears, and throat are unremarkable. Neck is supple. No lymphadenopathy. No crepitus. Cardiovascular: S1, S2, regular rate and rhythm. Pulmonary: Clear to auscultation bilaterally. Abdomen: Bowel sounds are positive. Abdomen is soft, nontender, and nondistended. Extremities: No rash, lesions, or edema. No restriction of range of motion NEUROLOGICAL EXAMINATION: Alert Oriented to time, place and person. PERRL. EOMI. CN: no focal findings. Muscle tone: within normal. Muscle strength: 4 DTR: 2 Plantar reflex: Flexor response bilaterally Gait: not examined in chair. Sensory exam: no abnormal findings. No cerebellar signs elicited. F-T-N test fine. Objective Objective Vital Signs Date Time Temp Pulse Resp B/P Pulse Ox O2 Delivery O2 Flow Rate FiO2 3/9/17 11:20 90 Room Air 11/18/16 11:00 97.6 60 16 126/67 97.6 Intake and Output 11/18/16 07:00 Intake Total 1100 ml Balance 1100 ml Intake Oral 200 ml IV Total 900 ml # Voids 3 # Bowel Movements 5 Vitals Signs Vitals VS - Last 72 Hours, by Label Date Time Temp Pulse Resp B/P Pulse Ox O2 Delivery O2 Flow Rate FiO2 11/18/16 11:20 90 Room Air 11/18/16 11:00 97.6 60 16 126/67 97 Room Air 97.6 11/18/16 08:00 Room Air 11/18/16 07:00 98.1 61 18 139/73 98 Room Air 98.1 11/18/16 03:00 97.5 65 18 114/63 94 Room Air 97.5 11/18/16 00:15 14 Room Air 11/17/16 23:17 16 Room Air 11/17/16 23:00 97.8 77 18 153/78 93 Room Air 97.8 11/17/16 19:35 Room Air 11/17/16 19:26 97 Room Air 11/17/16 19:00 98.6 68 18 123/75 96 Room Air 98.6 11/17/16 15:00 96.1 66 18 120/78 96 Room Air 96.1 11/17/16 13:15 96.3 70 18 124/81 98 Room Air 96.3 Laboratory Laboratory Laboratory Tests Test 11/18/16 03:50 White Blood Count 10.7x10^3/uL (4.0-11.0) Red Blood Count 3.93x10^6/uL (4.30-5.70) Hemoglobin 11.6g/dL (13.0-17.5) Hematocrit 34.9% (39.0-53.0) Mean Corpuscular Volume 89fL (79-100) Mean Corpuscular Hemoglobin 29pg (25-35) Mean Corpuscular Hemoglobin Concent 33g/dL (31-37) Red Cell Distribution Width 15.5% (11.5-14.5) Platelet Count 189x10^3/uL (140-400) Neutrophils (%) (Auto) 75% (31-73) Lymphocytes (%) (Auto) 15% (24-48) Monocytes (%) (Auto) 9% (0-9) Eosinophils (%) (Auto) 1% (0-3) Basophils (%) (Auto) 0% (0-3) Neutrophils # (Auto) 8.0x10^3uL (1.8-7.7) Lymphocytes # (Auto) 1.6x10^3/uL (1.0-4.8) Monocytes # (Auto) 1.0x10^3/uL (0.0-1.1) Eosinophils # (Auto) 0.1x10^3/uL (0.0-0.7) Basophils # (Auto) 0.0x10^3/uL (0.0-0.2) Sodium Level 145mmol/L (136-145) Potassium Level 4.2mmol/L (3.5-5.1) Chloride Level 109mmol/L (98-107) Carbon Dioxide Level 25mmol/L (21-32) Anion Gap 11 (6-14) Blood Urea Nitrogen 26mg/dL (8-26) Creatinine 1.1mg/dL (0.7-1.3) Estimated GFR (Cockcroft-Gault) 65.1 Glucose Level 102mg/dL (70-99) Calcium Level 8.8mg/dL (8.5-10.1) Medication Medications Current Medications Acetaminophen (Tylenol) 650 mg PRN Q6HRS PRN PO MILD PAIN / TEMP; Start at 17:00 Acetaminophen/ Hydrocodone Bitart (Lortab 5/325) 1 tab PRN Q4HRS PRN PO MILD PAIN Last administered on 11/17/16 23:17; Start 11/17/16 at 17:00 Albuterol Sulfate (Ventolin Neb Soln) 2.5 mg PRN Q4HRS PRN NEB SHORTNESS OF BREATH; Start 11/17/16 at 17:15 Albuterol/ Ipratropium (Duoneb) 3 ml RTQID NEB Last administered on 11/18/16 11 :18; Start 11/17/16 at 20:00 Azithromycin (Zithromax) 250 mg DAILY PO Last administered on 11/18/16 09:02; Start 11/17/16 at 18:30 Barium Sulfate (Varibar Thin Liquid) 148 gm 1X ONCE PO Last administered on 12:30; Start 11/18/16 at 12:30; Stop 11/18/16 at 12:31; Status DC Doxycycline Hyclate (Vibra-Tab) 100 mg BID PO Last administered on 11/18/16 09: 01; Start 11/17/16 at 21:00 Escitalopram Oxalate (Lexapro) 10 mg DAILY PO Last administered on 11/18/16 09: 02; Start 11/18/16 at 09:00 Heparin Sodium (Porcine) 5000 unit 5,000 unit Q8HRS SQ Last administered on 11/18 14:04; Start 11/17/16 at 22:00 Ondansetron HCl (Zofran) 4 mg PRN Q6HRS PRN IV NAUSEA/VOMITING; Start 11/17/16 at 17:00 Prednisone (Prednisone) 60 mg DAILYWBKFT PO Last administered on 11/18/16 09:02 ; Start 11/17/16 at 18:30; Stop 11/19/16 at 08:01 Sodium Chloride (Iv Sodium Chloride 0.45%) 1,000 ml @ 100 mls/hr 1X ONCE IV Last administered on 11/17/16 21:16; Start 11/17/16 at 17:00; Stop 11/18/16 at 02: 59; Status DC Comment Review of Relevant I have reviewed the following items josse (where applicable) has been applied. HAILEY PAGAN MD Nov 18, 2016 14:38
[2016-11-18 15:00] VITALS: BP 209/59
[2016-11-18] MEDS: AMLODIPINE BESYLATE 5 MG TABLET PO SCH (15:49)
[2016-11-18 19:00] VITALS: BP 108/51
[2016-11-18 23:00] VITALS: BP 97/56
[2016-11-19 03:00] VITALS: BP 129/80
[2016-11-19] MEDS: HEPARIN PF for SUB-Q USE 5,000 UNIT/0.5 ML VIAL. SQ SCH ×3 (05:41→21:38)
[2016-11-19 07:00] VITALS: BP 145/70
[2016-11-19] MEDS: IPRATRPIUM/ALBUTEROL 0.5/2.5MG 3 ML NEBU. NEB SCH ×4 (07:17→20:14)
[2016-11-19] MEDS: AZITHROMYCIN 250 MG TABLET PO SCH (08:53)
[2016-11-19] MEDS: DOXYCYCLINE HYCLATE 100 MG TABLET PO SCH ×2 (08:53→21:32)
[2016-11-19] MEDS: ESCITALOPRAM 10 MG TABLET. PO SCH (08:54)
[2016-11-19] MEDS: PREDNISONE 20 MG TABLET PO SCH (08:54)
[2016-11-19] MEDS: AMLODIPINE BESYLATE 5 MG TABLET PO SCH (08:54)
--- NOTE | 2016-11-19 10:29 | PDOC ---
PROGRESS NOTES Subjective Subjective No new complaints. Objective Objective Vital Signs Date Time Temp Pulse Resp B/P Pulse Ox O2 Delivery O2 Flow Rate FiO2 11/19/16 08:54 70 145/70 11/19/16 07:18 97 Room Air 11/19/16 07:00 97.6 16 97.6 Intake and Output 11/19/16 07:00 Intake Total 200 ml Balance 200 ml Intake Oral 200 ml # Voids 4 Physical Exam Physical Exam He is alert and comfortable and working with speech pathology on swallowing. He is independent with his mobility. Assessment Assessment Problems Medical Problems: (1) Generalized weakness Status: Acute Plan Plan of Custodial with home health or out patient follow up by speech pathology. Comment Review of Relevant I have reviewed the following items josse (where applicable) has been applied. Labs Laboratory Tests Test 11/17/16 14:05 11/18/16 03:50 White Blood Count 7.9x10^3/uL (4.0-11.0) 10.7x10^3/uL (4.0-11.0) Red Blood Count 4.37x10^6/uL (4.30-5.70) 3.93x10^6/uL (4.30-5.70) Hemoglobin 12.9g/dL (13.0-17.5) 11.6g/dL (13.0-17.5) Hematocrit 40.1% (39.0-53.0) 34.9% (39.0-53.0) Mean Corpuscular Volume 92fL (79-100) 89fL (79-100) Mean Corpuscular Hemoglobin 29pg (25-35) 29pg (25-35) Mean Corpuscular Hemoglobin Concent 32g/dL (31-37) 33g/dL (31-37) Red Cell Distribution Width 15.8% (11.5-14.5) 15.5% (11.5-14.5) Platelet Count 184x10^3/uL (140-400) 189x10^3/uL (140-400) Neutrophils (%) (Auto) 92% (31-73) 75% (31-73) Lymphocytes (%) (Auto) 5% (24-48) 15% (24-48) Monocytes (%) (Auto) 2% (0-9) 9% (0-9) Eosinophils (%) (Auto) 0% (0-3) 1% (0-3) Basophils (%) (Auto) 0% (0-3) 0% (0-3) Neutrophils # (Auto) 7.3x10^3uL (1.8-7.7) 8.0x10^3uL (1.8-7.7) Lymphocytes # (Auto) 0.4x10^3/uL (1.0-4.8) 1.6x10^3/uL (1.0-4.8) Monocytes # (Auto) 0.2x10^3/uL (0.0-1.1) 1.0x10^3/uL (0.0-1.1) Eosinophils # (Auto) 0.0x10^3/uL (0.0-0.7) 0.1x10^3/uL (0.0-0.7) Basophils # (Auto) 0.0x10^3/uL (0.0-0.2) 0.0x10^3/uL (0.0-0.2) Segmented Neutrophils % 92% (35-66) Band Neutrophils % 2% (0-9) Lymphocytes % 4% (24-48) Eosinophils % 1% (0-5) Basophils % 1% (0-3) Platelet Estimate Adequate (ADEQUATE) Prothrombin Time 12.9SEC (11.7-14.0) Prothromb Time International Ratio 1.0 (0.8-1.1) Sodium Level 146mmol/L (136-145) 145mmol/L (136-145) Potassium Level 4.3mmol/L (3.5-5.1) 4.2mmol/L (3.5-5.1) Chloride Level 110mmol/L (98-107) 109mmol/L (98-107) Carbon Dioxide Level 28mmol/L (21-32) 25mmol/L (21-32) Anion Gap 8 (6-14) 11 (6-14) Blood Urea Nitrogen 30mg/dL (8-26) 26mg/dL (8-26) Creatinine 1.4mg/dL (0.7-1.3) 1.1mg/dL (0.7-1.3) Estimated GFR (Cockcroft-Gault) 49.3 65.1 Glucose Level 101mg/dL (70-99) 102mg/dL (70-99) Calcium Level 9.2mg/dL (8.5-10.1) 8.8mg/dL (8.5-10.1) Creatine Kinase 20U/L (39-308) Vitamin B12 Level 590pg/mL (247-911) 25-Hydroxy Vitamin D Total 46.2ng/mL (30.0-100.0) Thyroid Stimulating Hormone (TSH) 1.594uIU/mL (0.358-3.74) Medications Current Medications Ondansetron HCl (Zofran) 4 mg PRN Q6HRS PRN IV NAUSEA/VOMITING; Start 11/17/16 at 17:00 Acetaminophen/ Hydrocodone Bitart (Lortab 5/325) 1 tab PRN Q4HRS PRN PO MILD PAIN Last administered on 11/17/16 23:17; Start 11/17/16 at 17:00 Acetaminophen (Tylenol) 650 mg PRN Q6HRS PRN PO MILD PAIN / TEMP; Start at 17:00 Heparin Sodium (Porcine) 5000 unit 5,000 unit Q8HRS SQ Last administered on 05:41; Start 11/17/16 at 22:00 Sodium Chloride (Iv Sodium Chloride 0.45%) 1,000 ml @ 100 mls/hr 1X ONCE IV Last administered on 11/17/16 21:16; Start 11/17/16 at 17:00; Stop 11/18/16 at 02: 59; Status DC Escitalopram Oxalate (Lexapro) 10 mg DAILY PO Last administered on 11/19/16 08 :54; Start 11/18/16 at 09:00 Doxycycline Hyclate (Vibra-Tab) 100 mg BID PO Last administered on 11/19/16 08 :53; Start 11/17/16 at 21:00 Albuterol Sulfate (Ventolin Neb Soln) 2.5 mg PRN Q4HRS PRN NEB SHORTNESS OF BREATH; Start 11/17/16 at 17:15 Albuterol/ Ipratropium (Duoneb) 3 ml RTQID NEB Last administered on 11/19/16 07:17; Start 11/17/16 at 20:00 Azithromycin (Zithromax) 250 mg DAILY PO Last administered on 11/19/16 08:53; Start 11/17/16 at 18:30 Prednisone (Prednisone) 60 mg DAILYWBKFT PO Last administered on 11/19/16 08: 54; Start 11/17/16 at 18:30; Stop 11/19/16 at 08:01; Status DC Barium Sulfate (Varibar Thin Liquid) 148 gm 1X ONCE PO Last administered on 12:30; Start 11/18/16 at 12:30; Stop 11/18/16 at 12:31; Status DC Amlodipine Besylate (Norvasc) 5 mg DAILY PO Last administered on 11/19/16 08: 54; Start 11/18/16 at 15:45 Active Scripts Active Lite Coat Aspirin (Aspirin) 325 Mg Tablet 325 Mg PO DAILY PRN 30 Days Atorvastatin Calcium 40 Mg Tablet 1 Tab PO DAILY PRN 30 Days Reported Vitamin D (Cholecalciferol (Vitamin D3)) 50,000 Unit Capsule 50,000 Unit PO WEEKLY Lwsgr-Rnjywdmdmx-Zsblclxwl Tb (B12/Levomefolate Calcium/B-6) 1 Each Tablet 1 Each PO DAILY08 Oxybutynin Chloride Er (Oxybutynin Chloride) 10 Mg Tab.er.24 10 Mg PO HS PRN Levothyroxine Sodium 25 Mcg Tablet 25 Mcg PO DAILYAC Vitals/I & O Vital Sign - Last 24 Hours 11/18/16 11/18/16 11/18/16 11/18/16 11:00 11:20 15:00 15:49 Temp 97.6 97.5 97.6 97.5 Pulse 60 71 Resp 16 16 B/P 126/67 209/59 209/59 Pulse Ox 97 90 94 O2 Delivery Room Air Room Air Room Air 11/18/16 11/18/16 11/18/16 11/18/16 15:59 19:00 20:00 20:48 Temp 97.8 97.8 Pulse 75 Resp 16 B/P 108/51 Pulse Ox 92 O2 Delivery Room Air Room Air Room Air Room Air 11/18/16 11/19/16 11/19/16 11/19/16 23:00 03:00 07:00 07:18 Temp 97.6 97.3 97.6 97.6 97.3 97.6 Pulse 79 67 70 Resp 16 16 16 B/P 97/56 129/80 145/70 Pulse Ox 93 95 94 97 O2 Delivery Room Air Room Air Room Air Room Air 11/19/16 08:54 Pulse 70 B/P 145/70 Intake and Output 11/18/16 11/18/16 11/19/16 15:00 23:00 07:00 Intake Total 200 ml Balance 200 ml Nutrition Consultation Dietary Evaluation: Comments: monitor need for supplementation Expected Outcomes/Goals: to meet > 75% est nutr needs Malnutrition Findings: Reduced [employer] Strength: N/A Weight Status: Appropriate Fluid Accumulation (N/A): N/A FEMI BYNUM MD Nov 19, 2016 10:28
[2016-11-19 11:00] VITALS: BP 142/71
[2016-11-19] MEDS ORDERED: ESCI10TA PO (11:49)
[2016-11-19] MEDS ORDERED: DOXY100T PO (11:49)
--- NOTE | 2016-11-19 13:20 | CONS ---
DATE OF CONSULTATION: 11/18/2016 ATTENDING PHYSICIAN: Dr. Jerry. The patient was seen at the request of Dr. Gagnon for rehab evaluation. HISTORY OF PRESENT ILLNESS: This is a 76-year-old right-handed male. His family physician Dr. Henriquez at [facility]. The patient was admitted through the Emergency Room on 11/17/2016 with generalized weakness and he was noted with dehydration. The patient feels better today. The patient apparently had a cerebrovascular accident in 08/2016 and had gone through inpatient rehab at [facility] and also at [facility] and he has been home and he is doing alright. He lives with his two grandsons, and the patient apparently had been independent with his mobility and self-care at roller walker level. The patient also had a narrow-based quad cane. The patient lives in a ranch-style home, daughter and grandkids live with him, one step to enter the house. He uses a walker or cane most of the time walker to get around. He apparently fell when getting out of the bed, three or four times lately. He is getting home health physical therapy and has progress to walking without any assistive devices with PT sessions. The patient denies any pain. He denies any trouble with his bowel or bladder control. He had video dysphagia study done which revealed some aspiration on thin liquids, which corrected with thickened liquid diet. The patient denies any neck pain. He had CT scan of his cervical vertebrae which revealed multilevel degenerative disk disease and degenerative joint disease with some degree of central spinal stenosis at C4 and C5, and also multilevel neural foraminal compromise. The patient denies any neck pain or any numbness, tingling sensation in the extremities. PHYSICAL EXAMINATION: The patient, on physical examination today revealed an elderly male. He is alert, oriented to time, place, person and circumstance and follows commands appropriately, moves all 4 extremities voluntarily where he had 4+/5 grade muscle strength and deep tendon reflexes are 1-2+ and symmetrical and he had equal perception of touch and pinprick sensation bilaterally. His skin is intact. He is independent with bed mobility and transfers. Once up, he can walk with the walker or without the walker. He can walk on his tiptoes and on his heels without any loss of balance, but he had some difficulty trying to walk on a straight line, one foot in front of the other. No significant tenderness to palpate. No cervical spine or paraspinal muscles were noted at present time. ASSESSMENT: An elderly male with recent-onset cerebrovascular accident and cervical spinal stenosis with some high level balance problems and also dysphagia to thin liquids. He was admitted with dehydration. He also had frequent falls at home. RECOMMENDATIONS: Agree with the plan for physical therapy and occupational therapy to work on safety ____ transfers home when medically stable with outpatient or home health followup. Dr. Gagnon, I appreciate asking me to participate in the care of this interesting patient. I will be glad to follow him with you as needed for the rehabilitation. FEMI BYNUM MD DR: CAMERON/iglesia JOB#: [id number] / [id number]
--- NOTE | 2016-11-19 14:13 | RAD ---
EXAM: CT head without contrast. HISTORY: Weakness. Prior cerebrovascular accident. TECHNIQUE: Computed tomography of the head was performed without intravenous contrast. COMPARISON: 08/20/2014. FINDINGS: There is no intracranial hemorrhage. Multiple moderately sized chronic lacunar infarcts within the basal ganglia on the right greater than left are new since 2013. There is jssx-qh-pdksezuo chronic small vessel ischemic white matter change elsewhere. Prominence of the lateral ventricles and hemispheric sulci indicate moderate to severe atrophy. There is a mucus retention cyst in the right maxillary sinus. The orbits are unremarkable. The temporal bones are unremarkable. The calvarium reveals no suspicious lesions. IMPRESSION: 1. No acute intracranial findings. 2. Multiple bilateral moderately sized basal ganglia lacunar infarctions are new since 2013. 3. Moderate to severe atrophy. *One or more of the following individualized dose reduction techniques were utilized for this examination: 1. Automated exposure control. 2. Adjustment of the mA and/or kV according to patient size. 3. Use of iterative reconstruction technique.
[2016-11-19 15:00] VITALS: BP 134/72
--- NOTE | 2016-11-19 15:24 | PDOC3 ---
Discharge Summary Visit Information Date of Admission: Nov 17, 2016 Date of Discharge: Nov 19, 2016 Admitting Diagnosis: weakness Final Diagnosis 1. generalized weakness 2. s/p recnt STROKE with mild left weakness, post CVA syndrome 3. COPD w/ acute bronchitis 4. CKD3 5. hypothyroidism 6. htn 7. hld 8. mild dysphagia 9. depression Problems Medical Problems: (1) Bronchitis Status: Acute (2) Generalized weakness Status: Acute Brief Hospital Course Allergies Allergies Coded Allergies Type Severity Reaction Last Updated Verified No Known Drug Allergies 06/18/14 No Vital Signs Vital Signs Date Time Temp Pulse Resp B/P Pulse Ox O2 Delivery O2 Flow Rate FiO2 11/19/16 11:00 98.1 75 16 142/71 96 Room Air 98.1 Lab Results Laboratory Tests Test 11/18/16 03:50 White Blood Count 10.7x10^3/uL (4.0-11.0) Red Blood Count 3.93x10^6/uL (4.30-5.70) Hemoglobin 11.6g/dL (13.0-17.5) Hematocrit 34.9% (39.0-53.0) Mean Corpuscular Volume 89fL (79-100) Mean Corpuscular Hemoglobin 29pg (25-35) Mean Corpuscular Hemoglobin Concent 33g/dL (31-37) Red Cell Distribution Width 15.5% (11.5-14.5) Platelet Count 189x10^3/uL (140-400) Neutrophils (%) (Auto) 75% (31-73) Lymphocytes (%) (Auto) 15% (24-48) Monocytes (%) (Auto) 9% (0-9) Eosinophils (%) (Auto) 1% (0-3) Basophils (%) (Auto) 0% (0-3) Neutrophils # (Auto) 8.0x10^3uL (1.8-7.7) Lymphocytes # (Auto) 1.6x10^3/uL (1.0-4.8) Monocytes # (Auto) 1.0x10^3/uL (0.0-1.1) Eosinophils # (Auto) 0.1x10^3/uL (0.0-0.7) Basophils # (Auto) 0.0x10^3/uL (0.0-0.2) Sodium Level 145mmol/L (136-145) Potassium Level 4.2mmol/L (3.5-5.1) Chloride Level 109mmol/L (98-107) Carbon Dioxide Level 25mmol/L (21-32) Anion Gap 11 (6-14) Blood Urea Nitrogen 26mg/dL (8-26) Creatinine 1.1mg/dL (0.7-1.3) Estimated GFR (Cockcroft-Gault) 65.1 Glucose Level 102mg/dL (70-99) Calcium Level 8.8mg/dL (8.5-10.1) Brief Hospital Course Mr. Castillo is a 76 old male, admit with weakness, lethargy, cough was on z-pack, finished here, cont doxy 7 more days, did well with PT and OT, walked > 200 ft w/ walker speech therapy, video swallow went well no aspiration plan home health had been in rehab many weeks new PCP, Dr. Henriquez, pee f/u 1-2 weeks Discharge Information Scheduled B12/Levomefolate Calcium/B-6 (Fbfvc-Qrubefulfx-Opbadtnjx Tb) 1 EACH PO DAILY08 ( Reported) Cholecalciferol (Vitamin D3) (Vitamin D) 50,000 UNIT PO WEEKLY (Reported) Doxycycline Hyclate (Doxycycline Hyclate) 100 MG PO BID Escitalopram Oxalate (Escitalopram Oxalate) 10 MG PO DAILY Levothyroxine Sodium (Levothyroxine Sodium) 25 MCG PO DAILYAC (Reported) Scheduled PRN Aspirin (Lite Coat Aspirin) 325 MG PO DAILY PRN PRN scheduled Atorvastatin Calcium (Atorvastatin Calcium) 1 TAB PO DAILY PRN PRN hld Oxybutynin Chloride (Oxybutynin Chloride Er) 10 MG PO HS PRN PRN OVERACTIVE BLADDER (Reported) Discontinued Medications Amlodipine Besylate (Norvasc) 5 MG PO BID (Reported) Hydrochlorothiazide (Hydrochlorothiazide Tablet ) 25 MG PO DAILY (Reported) Mirabegron (Myrbetriq) 50 MG PO DAILY (Reported) Pantoprazole Sodium (Protonix) 1 TAB PO DAILY (Reported) Terazosin Hcl (Terazosin Hcl) 10 MG PO HS (Reported) Patient Instructions Patient Instructions isai >30 min ADRI POWELL MD Nov 19, 2016 15:24
[2016-11-19] MEDS: ASPIRIN 325 MG TABLET PO SCH (16:00)
--- NOTE | 2016-11-19 16:00 | PDOC ---
PROGRESS NOTES Chief Complaint Chief Complaint 1. generalized weakness 2. s/p recnt STROKE 3mos ago with mild left weakness, 3. COPD 4. bronchitis 5. CKD3 6. hypothyroidism 7. htn 8. hld 9. mild dysphagia 10. depression History of Present Illness History of Present Illness PT and OT speech therapy, video swallow today plan home health had been in rehab many weeks new PCP Vitals Vitals Vital Signs Date Time Temp Pulse Resp B/P Pulse Ox O2 Delivery O2 Flow Rate FiO2 11/19/16 11:00 98.1 75 16 142/71 96 Room Air 98.1 Physical Exam General: Alert Heart: Regular rate, Normal S1, Normal S2 Lungs: Other (rales, mod volume) Abdomen: Normal bowel sounds Extremities: No clubbing Skin: No rashes Assessment and Plan Assessmemt and Plan Dr. Mcfadden wants patient to stay in the hospital, she believes pt has had a new stroke in the past 3 days, cont current w/u other with carotids, MRI, neuro following repeat lipid panel in AM labs in AM Problems Medical Problems: (1) Bronchitis Status: Acute (2) Generalized weakness Status: Acute Problems: Comment Review of Relevant I have reviewed the following items josse (where applicable) has been applied. Labs Laboratory Tests Test 11/18/16 03:50 White Blood Count 10.7x10^3/uL (4.0-11.0) Red Blood Count 3.93x10^6/uL (4.30-5.70) Hemoglobin 11.6g/dL (13.0-17.5) Hematocrit 34.9% (39.0-53.0) Mean Corpuscular Volume 89fL (79-100) Mean Corpuscular Hemoglobin 29pg (25-35) Mean Corpuscular Hemoglobin Concent 33g/dL (31-37) Red Cell Distribution Width 15.5% (11.5-14.5) Platelet Count 189x10^3/uL (140-400) Neutrophils (%) (Auto) 75% (31-73) Lymphocytes (%) (Auto) 15% (24-48) Monocytes (%) (Auto) 9% (0-9) Eosinophils (%) (Auto) 1% (0-3) Basophils (%) (Auto) 0% (0-3) Neutrophils # (Auto) 8.0x10^3uL (1.8-7.7) Lymphocytes # (Auto) 1.6x10^3/uL (1.0-4.8) Monocytes # (Auto) 1.0x10^3/uL (0.0-1.1) Eosinophils # (Auto) 0.1x10^3/uL (0.0-0.7) Basophils # (Auto) 0.0x10^3/uL (0.0-0.2) Sodium Level 145mmol/L (136-145) Potassium Level 4.2mmol/L (3.5-5.1) Chloride Level 109mmol/L (98-107) Carbon Dioxide Level 25mmol/L (21-32) Anion Gap 11 (6-14) Blood Urea Nitrogen 26mg/dL (8-26) Creatinine 1.1mg/dL (0.7-1.3) Estimated GFR (Cockcroft-Gault) 65.1 Glucose Level 102mg/dL (70-99) Calcium Level 8.8mg/dL (8.5-10.1) Medications Current Medications Ondansetron HCl (Zofran) 4 mg PRN Q6HRS PRN IV NAUSEA/VOMITING; Start 11/17/16 at 17:00 Acetaminophen/ Hydrocodone Bitart (Lortab 5/325) 1 tab PRN Q4HRS PRN PO MODERATE - SEVERE PAIN Last administered on 11/17/16 23:17; Start 11/17/16 at 17: 00 Acetaminophen (Tylenol) 650 mg PRN Q6HRS PRN PO MILD PAIN / TEMP; Start at 17:00 Heparin Sodium (Porcine) 5000 unit 5,000 unit Q8HRS SQ Last administered on 05:41; Start 11/17/16 at 22:00 Sodium Chloride (Iv Sodium Chloride 0.45%) 1,000 ml @ 100 mls/hr 1X ONCE IV Last administered on 11/17/16 21:16; Start 11/17/16 at 17:00; Stop 11/18/16 at 02: 59; Status DC Escitalopram Oxalate (Lexapro) 10 mg DAILY PO Last administered on 11/19/16 08 :54; Start 11/18/16 at 09:00 Doxycycline Hyclate (Vibra-Tab) 100 mg BID PO Last administered on 11/19/16 08 :53; Start 11/17/16 at 21:00 Albuterol Sulfate (Ventolin Neb Soln) 2.5 mg PRN Q4HRS PRN NEB SHORTNESS OF BREATH; Start 11/17/16 at 17:15 Albuterol/ Ipratropium (Duoneb) 3 ml RTQID NEB Last administered on 11/19/16 07:17; Start 11/17/16 at 20:00 Azithromycin (Zithromax) 250 mg DAILY PO Last administered on 11/19/16 08:53; Start 11/17/16 at 18:30; Stop 11/19/16 at 18:29 Prednisone (Prednisone) 60 mg DAILYWBKFT PO Last administered on 11/19/16 08: 54; Start 11/17/16 at 18:30; Stop 11/19/16 at 08:01; Status DC Barium Sulfate (Varibar Thin Liquid) 148 gm 1X ONCE PO Last administered on 12:30; Start 11/18/16 at 12:30; Stop 11/18/16 at 12:31; Status DC Amlodipine Besylate (Norvasc) 5 mg DAILY PO Last administered on 11/19/16 08: 54; Start 11/18/16 at 15:45 Active Scripts Active Doxycycline Hyclate 100 Mg Tablet 100 Mg PO BID Escitalopram Oxalate 10 Mg Tablet 10 Mg PO DAILY Lite Coat Aspirin (Aspirin) 325 Mg Tablet 325 Mg PO DAILY PRN 30 Days Atorvastatin Calcium 40 Mg Tablet 1 Tab PO DAILY PRN 30 Days Reported Vitamin D (Cholecalciferol (Vitamin D3)) 50,000 Unit Capsule 50,000 Unit PO WEEKLY Zfysf-Irrqhghcll-Zmardimpc Tb (B12/Levomefolate Calcium/B-6) 1 Each Tablet 1 Each PO DAILY08 Oxybutynin Chloride Er (Oxybutynin Chloride) 10 Mg Tab.er.24 10 Mg PO HS PRN Levothyroxine Sodium 25 Mcg Tablet 25 Mcg PO DAILYAC Vitals/I & O Vital Sign - Last 24 Hours 11/18/16 11/18/16 11/18/16 11/18/16 15:59 19:00 20:00 20:48 Temp 97.8 97.8 Pulse 75 Resp 16 B/P 108/51 Pulse Ox 92 O2 Delivery Room Air Room Air Room Air Room Air 11/18/16 11/19/16 11/19/16 11/19/16 23:00 03:00 07:00 07:15 Temp 97.6 97.3 97.6 97.6 97.3 97.6 Pulse 79 67 70 Resp 16 16 16 B/P 97/56 129/80 145/70 Pulse Ox 93 95 94 O2 Delivery Room Air Room Air Room Air Room Air 11/19/16 11/19/16 11/19/16 07:18 08:54 11:00 Temp 98.1 98.1 Pulse 70 75 Resp 16 B/P 145/70 142/71 Pulse Ox 97 96 O2 Delivery Room Air Room Air Intake and Output 11/18/16 11/18/16 11/19/16 15:00 23:00 07:00 Intake Total 200 ml Balance 200 ml Nutrition Consultation Dietary Evaluation: Comments: monitor need for supplementation Expected Outcomes/Goals: to meet > 75% est nutr needs Malnutrition Findings: Reduced Project Development Coordinator Strength: N/A Weight Status: Appropriate Fluid Accumulation (N/A): N/A ADRI POWELL MD Nov 19, 2016 16:00
--- NOTE | 2016-11-19 16:05 | PDOC ---
PROGRESS NOTES Assessment Assessment Generalized weakness x 4 days before admission. Chronic or subacute multiple bilateral lacunar infarcts, age undetermined. Hypothyroidism. HTN HLD COPD Anxiety Depression Smoking Degenerative spine and disc disease. C-spinal stenosis. Cardiac Meteronic in place. RECOMMENDATIONS/PLAN: ASA 325 mg daily. Carotid A US + Doppler. Echo + bubble study. Fasting lipid panel. Treat medical diseases. Brain MRI maybe contraindicated due to cardiac electronic monitor placement. MRI Dept not to take risk for MRI. OT/PT. C-spine CT: Degenerative C-spine and disc disease. Spinal stenosis. HCT: Bilateral lacunar infarcts age undetermined. HISTORY OF THE PRESENT ILLNESS: 76-y-old Male patient with above medical disease developed symptoms of generalized weakness for 4 days before admission. His cranial nerves are not affected. No sensory deficits. No urinary or bowel dysfunction. Generalized weakness improved since 11/18, and he was able to walk in room and Hallway. PAST MEDICAL HISTORY: Please see above. PAST SURGERY HISTORY: No major surgery recently. ALLERGY: Unknown MEDICATIONS: Refer to [facility] FAMILY HISTORY: Non contributory. SOCIAL HISTORY: Denies current drinking and illicit drug use. He smokes < 1 pack a day. REVIEW OF SYSTEMS: Constitutional: No malnutrition, weight loss, cachexia. Head: No traumatic brain or head injury. Skin: No edema, or rash. Ear: No infection, tinnitus. Eyes: No vision loss or color blindness. Nose: No bleeding or purulent discharges. Hearing: Hearing decrease. Neck: No injury. Cardiac: HTN, HLD. Pulmonary: COPD GI: No GI ulcer, GI bleeding. Urinary/genital: BPH Endocrinologic: hypothyroidism. Skeletomuscular: Generalized weakness. Neurological: see HP. Psychiatric: Denies drug use/abuse. Otherwise, not -ccgbn review of systems. PHYSICAL EXAMINATION: General appearance is in subacute distress. HEENT: Normocephalic and nontraumatic. Eyes, nose, ears, and throat are unremarkable. Neck is supple. No lymphadenopathy. No crepitus. Cardiovascular: S1, S2, regular rate and rhythm. Pulmonary: Clear to auscultation bilaterally. Abdomen: Bowel sounds are positive. Abdomen is soft, nontender, and nondistended. Extremities: No rash, lesions, or edema. No restriction of range of motion NEUROLOGICAL EXAMINATION: Alert Oriented to time, place and person. PERRL. EOMI. CN: no focal findings. Muscle tone: within normal. Muscle strength: 4+ DTR: 2 Plantar reflex: Flexor response bilaterally Gait: able to walk. Sensory exam: no abnormal findings. No cerebellar signs elicited. F-T-N test fine. Objective Objective Vital Signs Date Time Temp Pulse Resp B/P Pulse Ox O2 Delivery O2 Flow Rate FiO2 11/19/16 15:00 97.6 78 16 134/72 94 Room Air 97.6 Intake and Output 11/19/16 07:00 Intake Total 200 ml Balance 200 ml Intake Oral 200 ml # Voids 4 Vitals Signs Vitals VS - Last 72 Hours, by Label Date Time Temp Pulse Resp B/P Pulse Ox O2 Delivery O2 Flow Rate FiO2 11/19/16 15:00 97.6 78 16 134/72 94 Room Air 97.6 11/19/16 11:00 98.1 75 16 142/71 96 Room Air 98.1 11/19/16 08:54 70 145/70 11/19/16 07:18 97 Room Air 11/19/16 07:15 Room Air 11/19/16 07:00 97.6 70 16 145/70 94 Room Air 97.6 11/19/16 03:00 97.3 67 16 129/80 95 Room Air 97.3 11/18/16 23:00 97.6 79 16 97/56 93 Room Air 97.6 11/18/16 20:48 Room Air 11/18/16 20:00 Room Air 11/18/16 19:00 97.8 75 16 108/51 92 Room Air 97.8 11/18/16 15:59 Room Air 11/18/16 15:49 209/59 11/18/16 15:00 97.5 71 16 209/59 94 Room Air 97.5 11/18/16 11:20 90 Room Air 11/18/16 11:00 97.6 60 16 126/67 97 Room Air 97.6 11/18/16 08:00 Room Air 11/18/16 07:00 98.1 61 18 139/73 98 Room Air 98.1 Comment Review of Relevant I have reviewed the following items josse (where applicable) has been applied. HAILEY PAGAN MD Nov 19, 2016 16:05
--- NOTE | 2016-11-19 17:11 | RAD ---
EXAM: Carotid Doppler sonogram. HISTORY: Severe. TECHNIQUE: Negrete scale and color Doppler sonographic evaluation of the neck with spectral waveform analysis was performed and static images are submitted for review. FINDINGS: RIGHT: The peak systolic velocity within the common carotid artery is 101 cm/sec. The peak systolic velocity within the internal carotid artery is 73 cm/sec and the end diastolic velocity within the internal carotid artery is 21 cm/sec. The ICA/CCA ratio is 0.73. Grayscale images demonstrate mild calcified plaquing. LEFT: The peak systolic velocity within the common carotid artery is 71 cm/sec. The peak systolic velocity within the internal carotid artery is 70 cm/sec and the end diastolic velocity within the internal carotid artery is 90 cm/sec. The ICA/CCA ratio is 1.0. Grayscale images demonstrate mild calcified plaquing. There is antegrade flow within both vertebral arteries. IMPRESSION: 1. No evidence of hemodynamically significant stenosis. PQRS Compliance Statement - Stenosis calculations for CT, MR and conventional angiography are based upon measurement of the distal ICA diameter in accordance with the NASCET methodology. Stenosis calculations for carotid ultrasound studies are derived from validated velocity criteria which are known to correlate with the NASCET methodology.
[2016-11-19 19:00] VITALS: BP 119/71
[2016-11-19 23:00] VITALS: BP 133/67
[2016-11-20 03:00] VITALS: BP 117/79
[2016-11-20 05:35] LABS: BASO % 0 % (0-3); EOS % 0 % (0-3); HEMATOCRIT 38.6 % (39.0-53.0); HEMOGLOBIN 12.6 g/dL (13.0-17.5); LYMPH # 1.9 x10^3/uL (1.0-4.8); LYMPH % 15 % (24-48); MEAN CORPUSCULAR HEMOGLOBIN 29 pg (25-35); MEAN CORPUSCULAR HGB CONC 33 g/dL (31-37); MEAN CORPUSCULAR VOLUME 89 fL (79-100); MONO % 8 % (0-9); NEUT % 77 % (31-73); PLATELET COUNT 211 x10^3/uL (140-400); RED BLOOD COUNT 4.32 x10^6/uL (4.30-5.70); WHITE BLOOD COUNT 12.5 x10^3/uL (4.0-11.0)
[2016-11-20 05:55] LABS: CALCIUM 9.3 mg/dL (8.5-10.1); CREATININE 1.4 mg/dL (0.7-1.3); GFR 49.3; TOTAL BILIRUBIN 0.4 mg/dL (0.2-1.0)
[2016-11-20 05:56] LABS: CHOLESTEROL/HDL RATIO 4.2
[2016-11-20] MEDS: HEPARIN PF for SUB-Q USE 5,000 UNIT/0.5 ML VIAL. SQ SCH (06:08)
[2016-11-20 07:00] VITALS: BP 134/81
[2016-11-20] MEDS: IPRATRPIUM/ALBUTEROL 0.5/2.5MG 3 ML NEBU. NEB SCH ×2 (07:16→11:31)
[2016-11-20] MEDS: DOXYCYCLINE HYCLATE 100 MG TABLET PO SCH (09:26)
[2016-11-20] MEDS: ASPIRIN 325 MG TABLET PO SCH (09:26)
[2016-11-20] MEDS: ESCITALOPRAM 10 MG TABLET. PO SCH (09:26)
[2016-11-20] MEDS: AMLODIPINE BESYLATE 5 MG TABLET PO SCH (09:26)
[2016-11-20 11:00] VITALS: BP 121/65
--- NOTE | 2016-11-20 12:22 | PDOC ---
PROGRESS NOTES Subjective Subjective No new complaints. Objective Objective Vital Signs Date Time Temp Pulse Resp B/P Pulse Ox O2 Delivery O2 Flow Rate FiO2 11/20/16 11:31 Room Air 11/20/16 11:00 97.7 71 18 121/65 94 97.7 Intake and Output 11/20/16 07:00 Intake Total 210 ml Balance 210 ml Intake Oral 210 ml # Voids 6 # Bowel Movements 1 Physical Exam Physical Exam He is alert,comfortable.He remains independent with his mobility. I spoke to and his family at bedside. Assessment Assessment Problems Medical Problems: (1) Bronchitis Status: Acute (2) Generalized weakness Status: Acute Plan Plan of [facility] when medically stable.He needs to be on thickened liquids. Comment Review of Relevant I have reviewed the following items josse (where applicable) has been applied. Labs Laboratory Tests Test 11/20/16 05:00 White Blood Count 12.5x10^3/uL (4.0-11.0) Red Blood Count 4.32x10^6/uL (4.30-5.70) Hemoglobin 12.6g/dL (13.0-17.5) Hematocrit 38.6% (39.0-53.0) Mean Corpuscular Volume 89fL (79-100) Mean Corpuscular Hemoglobin 29pg (25-35) Mean Corpuscular Hemoglobin Concent 33g/dL (31-37) Red Cell Distribution Width 16.0% (11.5-14.5) Platelet Count 211x10^3/uL (140-400) Neutrophils (%) (Auto) 77% (31-73) Lymphocytes (%) (Auto) 15% (24-48) Monocytes (%) (Auto) 8% (0-9) Eosinophils (%) (Auto) 0% (0-3) Basophils (%) (Auto) 0% (0-3) Neutrophils # (Auto) 9.6x10^3uL (1.8-7.7) Lymphocytes # (Auto) 1.9x10^3/uL (1.0-4.8) Monocytes # (Auto) 1.0x10^3/uL (0.0-1.1) Eosinophils # (Auto) 0.0x10^3/uL (0.0-0.7) Basophils # (Auto) 0.0x10^3/uL (0.0-0.2) Sodium Level 146mmol/L (136-145) Potassium Level 5.0mmol/L (3.5-5.1) Chloride Level 109mmol/L (98-107) Carbon Dioxide Level 28mmol/L (21-32) Anion Gap 9 (6-14) Blood Urea Nitrogen 29mg/dL (8-26) Creatinine 1.4mg/dL (0.7-1.3) Estimated GFR (Cockcroft-Gault) 49.3 BUN/Creatinine Ratio 21 (6-20) Glucose Level 86mg/dL (70-99) Calcium Level 9.3mg/dL (8.5-10.1) Total Bilirubin 0.4mg/dL (0.2-1.0) Aspartate Amino Transf (AST/SGOT) 12U/L (15-37) Alanine Aminotransferase (ALT/SGPT) 20U/L (16-63) Alkaline Phosphatase 76U/L (46-116) Total Protein 6.0g/dL (6.4-8.2) Albumin 3.0g/dL (3.4-5.0) Albumin/Globulin Ratio 1.0 (1.0-1.7) Triglycerides Level 112mg/dL (0-150) Cholesterol Level 220mg/dL (0-200) LDL Cholesterol, Calculated 146mg/dL (0-100) VLDL Cholesterol, Calculated 22mg/dL (0-40) HDL Cholesterol 52mg/dL (40-60) Cholesterol/HDL Ratio 4.2 Laboratory Tests Test 11/20/16 05:00 White Blood Count 12.5x10^3/uL (4.0-11.0) Red Blood Count 4.32x10^6/uL (4.30-5.70) Hemoglobin 12.6g/dL (13.0-17.5) Hematocrit 38.6% (39.0-53.0) Mean Corpuscular Volume 89fL (79-100) Mean Corpuscular Hemoglobin 29pg (25-35) Mean Corpuscular Hemoglobin Concent 33g/dL (31-37) Red Cell Distribution Width 16.0% (11.5-14.5) Platelet Count 211x10^3/uL (140-400) Neutrophils (%) (Auto) 77% (31-73) Lymphocytes (%) (Auto) 15% (24-48) Monocytes (%) (Auto) 8% (0-9) Eosinophils (%) (Auto) 0% (0-3) Basophils (%) (Auto) 0% (0-3) Neutrophils # (Auto) 9.6x10^3uL (1.8-7.7) Lymphocytes # (Auto) 1.9x10^3/uL (1.0-4.8) Monocytes # (Auto) 1.0x10^3/uL (0.0-1.1) Eosinophils # (Auto) 0.0x10^3/uL (0.0-0.7) Basophils # (Auto) 0.0x10^3/uL (0.0-0.2) Sodium Level 146mmol/L (136-145) Potassium Level 5.0mmol/L (3.5-5.1) Chloride Level 109mmol/L (98-107) Carbon Dioxide Level 28mmol/L (21-32) Anion Gap 9 (6-14) Blood Urea Nitrogen 29mg/dL (8-26) Creatinine 1.4mg/dL (0.7-1.3) Estimated GFR (Cockcroft-Gault) 49.3 BUN/Creatinine Ratio 21 (6-20) Glucose Level 86mg/dL (70-99) Calcium Level 9.3mg/dL (8.5-10.1) Total Bilirubin 0.4mg/dL (0.2-1.0) Aspartate Amino Transf (AST/SGOT) 12U/L (15-37) Alanine Aminotransferase (ALT/SGPT) 20U/L (16-63) Alkaline Phosphatase 76U/L (46-116) Total Protein 6.0g/dL (6.4-8.2) Albumin 3.0g/dL (3.4-5.0) Albumin/Globulin Ratio 1.0 (1.0-1.7) Triglycerides Level 112mg/dL (0-150) Cholesterol Level 220mg/dL (0-200) LDL Cholesterol, Calculated 146mg/dL (0-100) VLDL Cholesterol, Calculated 22mg/dL (0-40) HDL Cholesterol 52mg/dL (40-60) Cholesterol/HDL Ratio 4.2 Medications Current Medications Ondansetron HCl (Zofran) 4 mg PRN Q6HRS PRN IV NAUSEA/VOMITING; Start 11/17/16 at 17:00 Acetaminophen/ Hydrocodone Bitart (Lortab 5/325) 1 tab PRN Q4HRS PRN PO MODERATE - SEVERE PAIN Last administered on 11/17/16 23:17; Start 11/17/16 at 17: 00 Acetaminophen (Tylenol) 650 mg PRN Q6HRS PRN PO MILD PAIN / TEMP; Start at 17:00 Heparin Sodium (Porcine) 5000 unit 5,000 unit Q8HRS SQ Last administered on 06:08; Start 11/17/16 at 22:00 Sodium Chloride (Iv Sodium Chloride 0.45%) 1,000 ml @ 100 mls/hr 1X ONCE IV Last administered on 11/17/16 21:16; Start 11/17/16 at 17:00; Stop 11/18/16 at 02: 59; Status DC Escitalopram Oxalate (Lexapro) 10 mg DAILY PO Last administered on 11/20/16 09 :26; Start 11/18/16 at 09:00 Doxycycline Hyclate (Vibra-Tab) 100 mg BID PO Last administered on 11/20/16 09 :26; Start 11/17/16 at 21:00 Albuterol Sulfate (Ventolin Neb Soln) 2.5 mg PRN Q4HRS PRN NEB SHORTNESS OF BREATH; Start 11/17/16 at 17:15 Albuterol/ Ipratropium (Duoneb) 3 ml RTQID NEB Last administered on 11/20/16 11:31; Start 11/17/16 at 20:00 Azithromycin (Zithromax) 250 mg DAILY PO Last administered on 11/19/16 08:53; Start 11/17/16 at 18:30; Stop 11/19/16 at 18:29; Status DC Prednisone (Prednisone) 60 mg DAILYWBKFT PO Last administered on 11/19/16 08: 54; Start 11/17/16 at 18:30; Stop 11/19/16 at 08:01; Status DC Barium Sulfate (Varibar Thin Liquid) 148 gm 1X ONCE PO Last administered on 12:30; Start 11/18/16 at 12:30; Stop 11/18/16 at 12:31; Status DC Amlodipine Besylate (Norvasc) 5 mg DAILY PO Last administered on 11/20/16 09: 26; Start 11/18/16 at 15:45 Aspirin (Neri Aspirin) 325 mg DAILYWBKFT PO Last administered on 11/20/16 09: 26; Start 11/19/16 at 16:00 Active Scripts Active Doxycycline Hyclate 100 Mg Tablet 100 Mg PO BID Escitalopram Oxalate 10 Mg Tablet 10 Mg PO DAILY Lite Coat Aspirin (Aspirin) 325 Mg Tablet 325 Mg PO DAILY PRN 30 Days Atorvastatin Calcium 40 Mg Tablet 1 Tab PO DAILY PRN 30 Days Reported Vitamin D (Cholecalciferol (Vitamin D3)) 50,000 Unit Capsule 50,000 Unit PO WEEKLY Unkiu-Iuprxnqfyq-Jqnlksyoe Tb (B12/Levomefolate Calcium/B-6) 1 Each Tablet 1 Each PO DAILY08 Oxybutynin Chloride Er (Oxybutynin Chloride) 10 Mg Tab.er.24 10 Mg PO HS PRN Levothyroxine Sodium 25 Mcg Tablet 25 Mcg PO DAILYAC Vitals/I & O Vital Sign - Last 24 Hours 11/19/16 11/19/16 11/19/16 11/19/16 15:00 19:00 20:00 23:00 Temp 97.6 98.4 98.1 97.6 98.4 98.1 Pulse 78 71 74 Resp 16 18 18 B/P 134/72 119/71 133/67 Pulse Ox 94 94 91 O2 Delivery Room Air Room Air Room Air Room Air 11/20/16 11/20/16 11/20/16 11/20/16 03:00 07:00 07:16 09:26 Temp 97.7 97.9 97.7 97.9 Pulse 74 98 98 Resp 18 18 B/P 117/79 134/81 134/81 Pulse Ox 94 95 94 O2 Delivery Room Air Room Air Room Air 11/20/16 11/20/16 11:00 11:31 Temp 97.7 97.7 Pulse 71 Resp 18 B/P 121/65 Pulse Ox 94 O2 Delivery Room Air Room Air Intake and Output 11/19/16 11/19/16 11/20/16 15:00 23:00 07:00 Intake Total 210 ml Balance 210 ml Nutrition Consultation Dietary Evaluation: Comments: monitor need for supplementation Expected Outcomes/Goals: to meet > 75% est nutr needs Malnutrition Findings: Reduced Emergency Service Worker Strength: N/A Weight Status: Appropriate Fluid Accumulation (N/A): N/A FEMI BYNUM MD Nov 20, 2016 12:22
--- NOTE | 2016-11-20 13:13 | PDOC ---
PROGRESS NOTES Assessment Problems Medical Problems: (1) Bronchitis Status: Acute (2) Generalized weakness Status: Acute Generalized weakness x 4 days before admission. Chronic or subacute multiple bilateral lacunar infarcts, age undetermined. Degenerative spine and disc disease. Plan I discussed with Dr. corrigan, he says that patient had a echocardiogram 3 months ago at another hospital, therefore no need to repeat Therefore okay for discharge on aspirin and statin Follow-up with neurology as needed. Subjective No complaints, wants to go home Objective Vital Signs Date Time Temp Pulse Resp B/P Pulse Ox O2 Delivery O2 Flow Rate FiO2 11/20/16 11:31 Room Air 11/20/16 11:00 97.7 71 18 121/65 94 97.7 Intake and Output 11/20/16 07:00 Intake Total 210 ml Balance 210 ml Intake Oral 210 ml # Voids 6 # Bowel Movements 1 PHYSICAL EXAM Alert. Oriented to time, place and person. PERRL. EOMI. CN: no focal findings. Muscle tone: normal. Muscle strength: 5/5 DTR: 2+ Plantar reflex: flexor Gait: normal Sensory exam: no abnormal findings. No cerebellar signs elicited. Review of Relevant I have reviewed the following items josse (where applicable) has been applied. Labs Laboratory Tests Test 11/20/16 05:00 White Blood Count 12.5x10^3/uL (4.0-11.0) Red Blood Count 4.32x10^6/uL (4.30-5.70) Hemoglobin 12.6g/dL (13.0-17.5) Hematocrit 38.6% (39.0-53.0) Mean Corpuscular Volume 89fL (79-100) Mean Corpuscular Hemoglobin 29pg (25-35) Mean Corpuscular Hemoglobin Concent 33g/dL (31-37) Red Cell Distribution Width 16.0% (11.5-14.5) Platelet Count 211x10^3/uL (140-400) Neutrophils (%) (Auto) 77% (31-73) Lymphocytes (%) (Auto) 15% (24-48) Monocytes (%) (Auto) 8% (0-9) Eosinophils (%) (Auto) 0% (0-3) Basophils (%) (Auto) 0% (0-3) Neutrophils # (Auto) 9.6x10^3uL (1.8-7.7) Lymphocytes # (Auto) 1.9x10^3/uL (1.0-4.8) Monocytes # (Auto) 1.0x10^3/uL (0.0-1.1) Eosinophils # (Auto) 0.0x10^3/uL (0.0-0.7) Basophils # (Auto) 0.0x10^3/uL (0.0-0.2) Sodium Level 146mmol/L (136-145) Potassium Level 5.0mmol/L (3.5-5.1) Chloride Level 109mmol/L (98-107) Carbon Dioxide Level 28mmol/L (21-32) Anion Gap 9 (6-14) Blood Urea Nitrogen 29mg/dL (8-26) Creatinine 1.4mg/dL (0.7-1.3) Estimated GFR (Cockcroft-Gault) 49.3 BUN/Creatinine Ratio 21 (6-20) Glucose Level 86mg/dL (70-99) Calcium Level 9.3mg/dL (8.5-10.1) Total Bilirubin 0.4mg/dL (0.2-1.0) Aspartate Amino Transf (AST/SGOT) 12U/L (15-37) Alanine Aminotransferase (ALT/SGPT) 20U/L (16-63) Alkaline Phosphatase 76U/L (46-116) Total Protein 6.0g/dL (6.4-8.2) Albumin 3.0g/dL (3.4-5.0) Albumin/Globulin Ratio 1.0 (1.0-1.7) Triglycerides Level 112mg/dL (0-150) Cholesterol Level 220mg/dL (0-200) LDL Cholesterol, Calculated 146mg/dL (0-100) VLDL Cholesterol, Calculated 22mg/dL (0-40) HDL Cholesterol 52mg/dL (40-60) Cholesterol/HDL Ratio 4.2 Laboratory Tests Test 11/20/16 05:00 White Blood Count 12.5x10^3/uL (4.0-11.0) Red Blood Count 4.32x10^6/uL (4.30-5.70) Hemoglobin 12.6g/dL (13.0-17.5) Hematocrit 38.6% (39.0-53.0) Mean Corpuscular Volume 89fL (79-100) Mean Corpuscular Hemoglobin 29pg (25-35) Mean Corpuscular Hemoglobin Concent 33g/dL (31-37) Red Cell Distribution Width 16.0% (11.5-14.5) Platelet Count 211x10^3/uL (140-400) Neutrophils (%) (Auto) 77% (31-73) Lymphocytes (%) (Auto) 15% (24-48) Monocytes (%) (Auto) 8% (0-9) Eosinophils (%) (Auto) 0% (0-3) Basophils (%) (Auto) 0% (0-3) Neutrophils # (Auto) 9.6x10^3uL (1.8-7.7) Lymphocytes # (Auto) 1.9x10^3/uL (1.0-4.8) Monocytes # (Auto) 1.0x10^3/uL (0.0-1.1) Eosinophils # (Auto) 0.0x10^3/uL (0.0-0.7) Basophils # (Auto) 0.0x10^3/uL (0.0-0.2) Sodium Level 146mmol/L (136-145) Potassium Level 5.0mmol/L (3.5-5.1) Chloride Level 109mmol/L (98-107) Carbon Dioxide Level 28mmol/L (21-32) Anion Gap 9 (6-14) Blood Urea Nitrogen 29mg/dL (8-26) Creatinine 1.4mg/dL (0.7-1.3) Estimated GFR (Cockcroft-Gault) 49.3 BUN/Creatinine Ratio 21 (6-20) Glucose Level 86mg/dL (70-99) Calcium Level 9.3mg/dL (8.5-10.1) Total Bilirubin 0.4mg/dL (0.2-1.0) Aspartate Amino Transf (AST/SGOT) 12U/L (15-37) Alanine Aminotransferase (ALT/SGPT) 20U/L (16-63) Alkaline Phosphatase 76U/L (46-116) Total Protein 6.0g/dL (6.4-8.2) Albumin 3.0g/dL (3.4-5.0) Albumin/Globulin Ratio 1.0 (1.0-1.7) Triglycerides Level 112mg/dL (0-150) Cholesterol Level 220mg/dL (0-200) LDL Cholesterol, Calculated 146mg/dL (0-100) VLDL Cholesterol, Calculated 22mg/dL (0-40) HDL Cholesterol 52mg/dL (40-60) Cholesterol/HDL Ratio 4.2 Medications Current Medications Ondansetron HCl (Zofran) 4 mg PRN Q6HRS PRN IV NAUSEA/VOMITING; Start 11/17/16 at 17:00 Acetaminophen/ Hydrocodone Bitart (Lortab 5/325) 1 tab PRN Q4HRS PRN PO MODERATE - SEVERE PAIN Last administered on 11/17/16 23:17; Start 11/17/16 at 17: 00 Acetaminophen (Tylenol) 650 mg PRN Q6HRS PRN PO MILD PAIN / TEMP; Start at 17:00 Heparin Sodium (Porcine) 5000 unit 5,000 unit Q8HRS SQ Last administered on 06:08; Start 11/17/16 at 22:00 Sodium Chloride (Iv Sodium Chloride 0.45%) 1,000 ml @ 100 mls/hr 1X ONCE IV Last administered on 11/17/16 21:16; Start 11/17/16 at 17:00; Stop 11/18/16 at 02: 59; Status DC Escitalopram Oxalate (Lexapro) 10 mg DAILY PO Last administered on 11/20/16 09 :26; Start 11/18/16 at 09:00 Doxycycline Hyclate (Vibra-Tab) 100 mg BID PO Last administered on 11/20/16 09 :26; Start 11/17/16 at 21:00 Albuterol Sulfate (Ventolin Neb Soln) 2.5 mg PRN Q4HRS PRN NEB SHORTNESS OF BREATH; Start 11/17/16 at 17:15 Albuterol/ Ipratropium (Duoneb) 3 ml RTQID NEB Last administered on 11/20/16 11:31; Start 11/17/16 at 20:00 Azithromycin (Zithromax) 250 mg DAILY PO Last administered on 11/19/16 08:53; Start 11/17/16 at 18:30; Stop 11/19/16 at 18:29; Status DC Prednisone (Prednisone) 60 mg DAILYWBKFT PO Last administered on 11/19/16 08: 54; Start 11/17/16 at 18:30; Stop 11/19/16 at 08:01; Status DC Barium Sulfate (Varibar Thin Liquid) 148 gm 1X ONCE PO Last administered on 12:30; Start 11/18/16 at 12:30; Stop 11/18/16 at 12:31; Status DC Amlodipine Besylate (Norvasc) 5 mg DAILY PO Last administered on 11/20/16 09: 26; Start 11/18/16 at 15:45 Aspirin (Neri Aspirin) 325 mg DAILYWBKFT PO Last administered on 11/20/16 09: 26; Start 11/19/16 at 16:00 Active Scripts Active Doxycycline Hyclate 100 Mg Tablet 100 Mg PO BID Escitalopram Oxalate 10 Mg Tablet 10 Mg PO DAILY Lite Coat Aspirin (Aspirin) 325 Mg Tablet 325 Mg PO DAILY PRN 30 Days Atorvastatin Calcium 40 Mg Tablet 1 Tab PO DAILY PRN 30 Days Reported Vitamin D (Cholecalciferol (Vitamin D3)) 50,000 Unit Capsule 50,000 Unit PO WEEKLY Kehnk-Btxjegjofm-Nbpomgtfe Tb (B12/Levomefolate Calcium/B-6) 1 Each Tablet 1 Each PO DAILY08 Oxybutynin Chloride Er (Oxybutynin Chloride) 10 Mg Tab.er.24 10 Mg PO HS PRN Levothyroxine Sodium 25 Mcg Tablet 25 Mcg PO DAILYAC Vitals/I & O Vital Sign - Last 24 Hours 11/19/16 11/19/16 11/19/16 11/19/16 15:00 19:00 20:00 23:00 Temp 97.6 98.4 98.1 97.6 98.4 98.1 Pulse 78 71 74 Resp 18 B/P 134/72 119/71 133/67 Pulse Ox 94 94 91 O2 Delivery Room Air Room Air Room Air Room Air 11/20/16 11/20/16 11/20/16 11/20/16 03:00 07:00 07:16 08:00 Temp 97.7 97.9 97.7 97.9 Pulse 74 98 Resp 18 18 B/P 117/79 134/81 Pulse Ox 94 95 94 O2 Delivery Room Air Room Air Room Air Room Air 11/20/16 11/20/16 11/20/16 09:26 11:00 11:31 Temp 97.7 97.7 Pulse 98 71 Resp 18 B/P 134/81 121/65 Pulse Ox 94 O2 Delivery Room Air Room Air Intake and Output 11/19/16 11/19/16 11/20/16 15:00 23:00 07:00 Intake Total 210 ml Balance 210 ml Images Carotids negative Head CT: 1. No acute intracranial findings. 2. Multiple bilateral moderately sized basal ganglia lacunar infarctions are new since 2013. 3. Moderate to severe atrophy. RICHIE ALLEN MD Nov 20, 2016 13:13
== END 2016-11-20 12:50 | disposition home health service (06) | DRG 682 ==
LOC: 4 NORTH 12:02
PROVIDERS: ADMIT Internal Medicine; ATTEND Internal Medicine
DX: N17.0 Acute kidney failure with tubular necrosis (principal); G93.40 Encephalopathy, unspecified; J44.0 Chronic obstructive pulmonary disease with (acute) lower respiratory infection; R53.1 Weakness; I12.9 Hypertensive chronic kidney disease with stage 1 through stage 4 chronic kidney disease, or unspecified chronic kidney disease; N18.2 Chronic kidney disease, stage 2 (mild); E03.9 Hypothyroidism, unspecified; E78.5 Hyperlipidemia, unspecified; E86.0 Dehydration; F17.210 Nicotine dependence, cigarettes, uncomplicated; F32.9 Major depressive disorder, single episode, unspecified; F41.9 Anxiety disorder, unspecified; J20.9 Acute bronchitis, unspecified; K21.9 Gastro-esophageal reflux disease without esophagitis; M19.90 Unspecified osteoarthritis, unspecified site; M48.02 Spinal stenosis, cervical region; M50.30 Other cervical disc degeneration, unspecified cervical region; R29.6 Repeated falls; W06.XXXA Fall from bed, initial encounter; Z79.82 Long term (current) use of aspirin; Z86.73 Personal history of transient ischemic attack (TIA), and cerebral infarction without residual deficits; Y93.89 Activity, other specified; Y92.89 Other specified places as the place of occurrence of the external cause; Y99.8 Other external cause status; Z79.899 Other long term (current) drug therapy; I69.398 Other sequelae of cerebral infarction
CPT/HCPCS: 36415; 70450; 71010; 72125; 74230; 80048; 80053; 80061; 82306; 82550; 82607; 84443; 85007; 85027; 85610; 93005; 93880; 94250; 94640; 94760; J7512; J7620; Q0144; 92526; 92610; 92611; 97116

== ENCOUNTER 2020-07-22 14:56 | Emergency (ER) | payer MEDICARE ==
[~2020-07-22] VITALS: Ht 180.3 cm; Wt 61.3 kg
[~2020-07-22 14:56] MED LIST changes: +ACET325T21 PO; +ALBU2.5V14 NEB; +ALBU2.5V5 NEB; +ASCO500C PO; +B12/1TAB2 PO; +CARB15DR3 RIGHTEYE; +CHOL500050 PO; +CLOP75TA PO; +DICL100G54 TP; +DOXY100T PO; +ESCITALOPRAM OX10 MG PO; +FERR325T14 PO; +HYDR-2145 PO; +HYDR-2761 PO; -HYDR25TA9 PO; +IBUP-4 PO; +LATA7.5D OP; +MAG-115 PO; +MAGN400O7 PO; +OXYB10TA26 PO; -PANT40TA3 PO; +PANT40TA77 PO; +PROP10DR2 OP; +PROP15DR EACHEYE; +SENN8.8S5 PO; +SERT100T PO; +TAMS0.4C97 PO; +TRAZ-118 PO; +VIT1CAPS12 PO; +[UNRECOGNIZED DRUG - CODE] PO
--- NOTE | 2020-07-22 15:45 | RAD ---
EXAM: HIP LEFT 2V WITH PELVIS 07/22/2020 12:00 AM CLINICAL INDICATION:Fall, left lower extremity shortening COMPARISON:None TECHNIQUE:AP view the pelvis and AP and frog-leg lateral views of the left hip FINDINGS:No acute fracture. Alignment is normal. The hip joint spaces are maintained. There is degenerative disc disease and facet arthrosis of the lower lumbar spine. Sacrum and parts of the iliac bones are obscured by overlying bowel. There are surgical clips in the left groin. Vascular calcifications noted. IMPRESSION:No acute osseous abnormality. Electronically signed by: Jerrica Taylor MD (07/22/2020 3:42 PM) [id number]
--- NOTE | 2020-07-22 16:31 | RAD ---
CHEST AP ONLY Clinical Indication: Reason: COUGH, REPORTED FEVER / Spl. Instructions: / History: Comparison: AP chest, January 18, 2017. Findings: Tortuous thoracic aorta. Left chest cardiac event monitor. Cardiac size is normal. Lungs are clear. There is no pneumothorax. No pleural effusion is appreciated. No acute bone abnormality. IMPRESSION: No acute cardiopulmonary process. Electronically signed by: Mitchell Jones MD (07/22/2020 4:28 PM) [id number]
--- NOTE | 2020-07-22 16:34 | ED.ADGEN ---
Past Medical History Past Medical History: Alcoholism, Cancer, COPD, CVA, Depression, High Cholesterol, Hypertension, Hypothyroid, MO, Other Additional Past Medical Histor: NON-HODGKINS lymphoma Past Surgical History: Other Additional Past Surgical Histo: hemorroid surgery Smoking Status: Current Every Day Smoker Alcohol Use: Sober (quit drinking in May 2012) Drug Use: None General Adult EDM: Chief Complaint: TRAUMA ALERT HPI: HPI: Patient is a 80 year old male who presented to the emergency department via EMS. Patient complains of left hip pain after he tripped over his walker and fell outside. Patient denies any loss of consciousness, head, neck, or back pain. EMS reports that prior to their arrival the patient had been given a gram of Tylenol for a temperature of 100.7 at the long term. The patient's daughter who was initially at the bedside reports that her father told her that he did hit his head, she also reports earlier today the patient was talking about going home to his long term staff. She was states that the long term staff felt that he had been confused today.. Patient denies any cough, chest pain, shortness of breath, headache, abdominal pain, nausea, or vomiting. He currently rates his pain a 4 out of 10 on the pain scale and states the pain is in his left hip increases with palpation. Review of Systems: Review of Systems: Complete ROS is negative unless otherwise noted in HPI. Allergies: Allergies: Allergies Coded Allergies Type Severity Reaction Last Updated Verified No Known Drug Allergies 06/18/14 No Physical Exam: PE: See Above Constitutional: Well developed, well nourished, no acute distress, non-toxic appearance. [] HENT: Normocephalic, atraumatic, bilateral external ears normal, nose normal. [] Eyes: PERRLA, EOMI, conjunctiva normal, no discharge. [] Neck: Normal range of motion, no tenderness, supple, no stridor. [] Cardiovascular:Heart rate irregular rhythm Lungs & Thorax: Respirations even and unlabored, no retractions, no respiratory distress Abdomen: soft, no tenderness, no masses, no pulsatile masses. [] Skin: Warm, dry, no erythema, no rash. [] Back: No tenderness, no CVA tenderness. [] Extremities: LLE: Left hip tenderness to palpation without crepitus or obvious deformity, shortening of the left leg without rotation present; no tenderness to palpation of the left knee or ankle, no cyanosis, no clubbing, 2+ edema of lower left extremity 2+ pedal pulse RLE: No tenderness, no cyanosis, no clubbing, 1+ edema of the right lower extremity, 2+ pedal pulse Neurologic: Alert and oriented X 3, normal motor function, normal sensory function, no focal deficits noted. [] Psychologic: Affect normal, judgement normal, mood normal. [] Current Patient Data: Labs: Laboratory Tests Test 07/22/20 16:58 07/22/20 19:34 White Blood Count 9.6 x10^3/uL (4.0-11.0) Red Blood Count 3.04 x10^6/uL (4.30-5.70) L Hemoglobin 8.8 g/dL (13.0-17.5) L Hematocrit 27.0 % (39.0-53.0) L Mean Corpuscular Volume 89 fL (79-100) Mean Corpuscular Hemoglobin 29 pg (25-35) Mean Corpuscular Hemoglobin Concent 33 g/dL (31-37) Red Cell Distribution Width 21.6 % (11.5-14.5) H Platelet Count 174 x10^3/uL (140-400) Neutrophils (%) (Auto) 87 % (31-73) H Lymphocytes (%) (Auto) 2 % (24-48) L Monocytes (%) (Auto) 10 % (0-9) H Eosinophils (%) (Auto) 1 % (0-3) Basophils (%) (Auto) 1 % (0-3) Neutrophils # (Auto) 8.3 x10^3/uL (1.8-7.7) H Lymphocytes # (Auto) 0.2 x10^3/uL (1.0-4.8) L Monocytes # (Auto) 0.9 x10^3/uL (0.0-1.1) Eosinophils # (Auto) 0.1 x10^3/uL (0.0-0.7) Basophils # (Auto) 0.1 x10^3/uL (0.0-0.2) Segmented Neutrophils % 84 % (35-66) H Band Neutrophils % 5 % (0-9) Lymphocytes % 1 % (24-48) L Monocytes % 9 % (0-10) Eosinophils % 1 % (0-5) Toxic Granulation Slight Toxic Vacuolation Slight Platelet Estimate Adequate (ADEQUATE) Platelet Clumps, EDTA Present Giant Platelets Occ Poikilocytosis Slight Anisocytosis Mod Target Cells Occ Tear Drop Cells Occ Ovalocytes Occ Schistocytes Occ Prothrombin Time 13.6 SEC (11.7-14.0) Prothrombin Time INR 1.1 (0.8-1.1) Activated Partial Thromboplast Time 35 SEC (24-38) Sodium Level 142 mmol/L (136-145) Potassium Level 4.2 mmol/L (3.5-5.1) Chloride Level 105 mmol/L (98-107) Carbon Dioxide Level 26 mmol/L (21-32) Anion Gap 11 (6-14) Blood Urea Nitrogen 33 mg/dL (8-26) H Creatinine 1.9 mg/dL (0.7-1.3) H Estimated GFR (Cockcroft-Gault) 34.3 BUN/Creatinine Ratio 17 (6-20) Glucose Level 109 mg/dL (70-99) H Calcium Level 8.4 mg/dL (8.5-10.1) L Total Bilirubin 0.2 mg/dL (0.2-1.0) Aspartate Amino Transferase (AST) 13 U/L (15-37) L Alanine Aminotransferase (ALT) 18 U/L (16-63) Alkaline Phosphatase 77 U/L (46-116) Total Protein 6.0 g/dL (6.4-8.2) L Albumin 2.9 g/dL (3.4-5.0) L Albumin/Globulin Ratio 0.9 (1.0-1.7) L Urine Collection Type U cath Urine Color Yellow Urine Clarity Clear Urine pH 5.5 (<5.0-8.0) Urine Specific [place] 1.025 (1.000-1.030) Urine Protein Negative mg/dL (NEG-TRACE) Urine Glucose (UA) Negative mg/dL (NEG) Urine Ketones (Stick) Negative mg/dL (NEG) Urine Blood Negative (NEG) Urine Nitrite Negative (NEG) Urine Bilirubin Negative (NEG) Urine Urobilinogen Dipstick 0.2 mg/dL (0.2 mg/dL) Urine Leukocyte Esterase Negative (NEG) Urine RBC Occ /HPF (0-2) Urine WBC 0 /HPF (0-4) Urine Amorphous Sediment Present /HPF Urine Bacteria 0 /HPF (0-FEW) Urine Mucus Slight /LPF Laboratory Tests 07/22/20 16:58 Laboratory Tests 07/22/20 16:58 Vital Signs: Vital Signs Date Time Temp Pulse Resp B/P (MAP) Pulse Ox O2 Delivery O2 Flow Rate FiO2 07/22/20 20:50 100 128/60 (82) 92 Room Air 07/22/20 14:56 97.5 17 97.5 EKG: EK-sinus tachycardia, rate 103, PACs present, no STEMI, read by Dr. Sales. [] Heart Score: Risk Factors: Risk Factors: DM, Current or recent (<one month) smoker, HTN, HLP, family history of CAD, obesity. Risk Scores: Score 0 - 3: 2.5% MACE over next 6 weeks - Discharge Home Score 4 - 6: 20.3% MACE over next 6 weeks - Admit for Clinical Observation Score 7 - 10: 72.7% MACE over next 6 weeks - Early Invasive Strategies Radiology/Procedures: Radiology/Procedures: PROCEDURE: HIP LEFT 2V WITH PELVIS EXAM: HIP LEFT 2V WITH PELVIS 07/22/2020 12:00 AM CLINICAL INDICATION:Fall, left lower extremity shortening COMPARISON:None TECHNIQUE:AP view the pelvis and AP and frog-leg lateral views of the left hip FINDINGS:No acute fracture. Alignment is normal. The hip joint spaces are maintained. There is degenerative disc disease and facet arthrosis of the lower lumbar spine. Sacrum and parts of the iliac bones are obscured by overlying bowel. There are surgical clips in the left groin. Vascular calcifications noted. IMPRESSION:No acute osseous abnormality.[] PROCEDURE: CHEST AP ONLY CHEST AP ONLY Clinical Indication: Reason: COUGH, REPORTED FEVER / Spl. Instructions: / History: Comparison: AP chest, January 18, 2017. Findings: Tortuous thoracic aorta. Left chest cardiac event monitor. Cardiac size is normal. Lungs are clear. There is no pneumothorax. No pleural effusion is appreciated. No acute bone abnormality. IMPRESSION: No acute cardiopulmonary process. PROCEDURE: CT HEAD AND CERVICAL SPINE WO CT scan of the head without contrast 07/22/2020 Clinical History: Fall. Head injury. Technique: Unenhanced, contiguous, 5 mm axial sections were obtained through the head. One or more of the following individualized dose reduction techniques were utilized for this study: 1. Automated exposure control. 2. Adjustment of the mA and/or kV according to patient size. 3. Use of iterative reconstruction technique. Findings: Comparison study is dated 01/18/2017. There is generalized parenchymal atrophy. Areas of decreased attenuation are seen within the periventricular and subcortical white matter of both cerebral hemispheres consistent with areas of small vessel ischemic disease. No acute parenchymal abnormality is seen. No extra-axial fluid collection is noted. No skull fracture is seen. Impression: No acute intracranial abnormality is seen. CT scan of the cervical spine without contrast 07/22/2020 Clinical history: Neck injury. Technique: Unenhanced, contiguous, 0.625 mm axial sections were obtained through the cervical spine. Axial, coronal and sagittal reconstructed images were obtained. One or more of the following individualized dose reduction techniques were utilized for this study: 1. Automated exposure control. 2. Adjustment of the mA and/or kV according to patient size. 3. Use of iterative reconstruction technique. Findings: Sagittal and coronal reconstructed images demonstrate straightening of the normal cervical lordosis. Degenerative changes consisting of disc space narrowing, vertebral endplate sclerosis and mild to moderate anterior and posterior vertebral body osteophyte formation are seen involving the C4-5, C5-6 and C6-7 disc spaces. No fracture or subluxation of the cervical vertebrae is seen. Degenerative changes are seen involving the uncovertebral and facet joints throughout the cervical disc spaces. Atherosclerotic calcification is seen in the region of the carotid bifurcations. Impression: No fracture or subluxation of the cervical vertebra is identified. Course & Med Decision Making: Course & Med Decision Making Pertinent Labs and Imaging studies reviewed. (See chart for details) [id number] spoke with patient's daughter Elza on the phone who states that staff at the long term where the patient resides reported that her father had been confused this morning she also reports that her father reported hitting his head when he fell to her. I advised her he says that I will do a CT scan of the patient's head and CT of his neck in addition to the hip x-ray, labs and EKG have been ordered. X-ray of the left hip and pelvis revealed no acute findings. Chest x-ray revealed no acute findings. CT of the patient's head and cervical spine were without any acute findings. CBC revealed anemia chronic per patient history; CMP revealed a BUN of 33, creatinine of 1.9 consistent with patient's previous labs, CMP is otherwise unremarkable; urinalysis is not concerning for any urinary tract infection. The patient reported feeling better and requested to go home. He is alert and oriented to person, place, year, and situation. 2020-I spoke with patient's daughter Elza again and advised her of her normal findings. Plan to send patient back to the nursing facility, recommend follow- up with primary care doctor in 1 to 2 days, return to the ER if symptoms worsen. I advised her he said the patient will be sent back to the long term via EMS. [] Dragon Disclaimer: Dragon Disclaimer: This electronic medical record was generated, in whole or in part, using a voice recognition dictation system. Departure Departure Impression: Primary Impression: Fall at long term Additional Impressions: Left hip pain Intermittent confusion Disposition: DC HOME SELF CARE/HOMELESS Condition: STABLE Referrals: RAFI CRUZ MD (PCP) Patient Instructions: Confusion, Fall Prevention in Hospitals, Hip Pain Additional Instructions: CT of the patient's head and neck revealed no acute findings. X-ray of the left hip was negative for any acute fracture. Labs were consistent with patient's previous labs. Follow-up with primary care doctor in 1 to 2 days, return to the ER if symptoms worsen. Attending Signature Attending Signature I have reviewed the PA/PAINT TINTER's note and plan of care. I was available for consultation as needed during the patient's visit in the emergency department. I agree with the clinical impression, plan, and disposition. Problem Qualifiers Primary Impression: Fall at long term Encounter type: initial encounter Qualified Codes: W19.XXXA - Unspecified fall, initial encounter; Y92.129 - Unspecified place in long term as the place of occurrence of the external cause JONE ROBERSON APRN Jul 22, 2020 16:34 KIERSTEN SALES DO Jul 23, 2020 10:01
--- NOTE | 2020-07-22 16:48 | RAD ---
CT scan of the head without contrast 07/22/2020 Clinical History: Fall. Head injury. Technique: Unenhanced, contiguous, 5 mm axial sections were obtained through the head. One or more of the following individualized dose reduction techniques were utilized for this study: 1. Automated exposure control. 2. Adjustment of the mA and/or kV according to patient size. 3. Use of iterative reconstruction technique. Findings: Comparison study is dated 01/18/2017. There is generalized parenchymal atrophy. Areas of decreased attenuation are seen within the periventricular and subcortical white matter of both cerebral hemispheres consistent with areas of small vessel ischemic disease. No acute parenchymal abnormality is seen. No extra-axial fluid collection is noted. No skull fracture is seen. Impression: No acute intracranial abnormality is seen. CT scan of the cervical spine without contrast 07/22/2020 Clinical history: Neck injury. Technique: Unenhanced, contiguous, 0.625 mm axial sections were obtained through the cervical spine. Axial, coronal and sagittal reconstructed images were obtained. One or more of the following individualized dose reduction techniques were utilized for this study: 1. Automated exposure control. 2. Adjustment of the mA and/or kV according to patient size. 3. Use of iterative reconstruction technique. Findings: Sagittal and coronal reconstructed images demonstrate straightening of the normal cervical lordosis. Degenerative changes consisting of disc space narrowing, vertebral endplate sclerosis and mild to moderate anterior and posterior vertebral body osteophyte formation are seen involving the C4-5, C5-6 and C6-7 disc spaces. No fracture or subluxation of the cervical vertebrae is seen. Degenerative changes are seen involving the uncovertebral and facet joints throughout the cervical disc spaces. Atherosclerotic calcification is seen in the region of the carotid bifurcations. Impression: No fracture or subluxation of the cervical vertebra is identified. Electronically signed by: Joe Farmer MD (07/22/2020 4:45 PM) [id number]
[2020-07-22 17:06] LABS: BASO # 0.1 x10^3/uL (0.0-0.2); BASO % 1 % (0-3); EOS # 0.1 x10^3/uL (0.0-0.7); EOS % 1 % (0-3); HEMOGLOBIN 8.8 g/dL (13.0-17.5); LYMPH # 0.2 x10^3/uL (1.0-4.8); LYMPH % 2 % (24-48); MEAN CORPUSCULAR HEMOGLOBIN 29 pg (25-35); MEAN CORPUSCULAR HGB CONC 33 g/dL (31-37); MEAN CORPUSCULAR VOLUME 89 fL (79-100); MONO # 0.9 x10^3/uL (0.0-1.1); MONO % 10 % (0-9); NEUT # 8.3 x10^3/uL (1.8-7.7); NEUT % 87 % (31-73); PLATELET COUNT 174 x10^3/uL (140-400); RED BLOOD COUNT 3.04 x10^6/uL (4.30-5.70); RED CELL DISTRIBUTION WIDTH 21.6 % (11.5-14.5); WHITE BLOOD COUNT 9.6 x10^3/uL (4.0-11.0)
[2020-07-22 17:15] LABS: CALCIUM 8.4 mg/dL (8.5-10.1); CREATININE 1.9 mg/dL (0.7-1.3); GFR 34.3; POTASSIUM 4.2 mmol/L (3.5-5.1)
[2020-07-22 17:17] LABS: PROTHROMBIN TIME PATIENT 13.6 SEC (11.7-14.0)
[2020-07-22 17:21] LABS: ALBUMIN 2.9 g/dL (3.4-5.0); ALBUMIN/GLOBULIN RATIO 0.9 (1.0-1.7); TOTAL BILIRUBIN 0.2 mg/dL (0.2-1.0)
[2020-07-22 17:27] LABS: % BANDS 5 % (0-9); % EOS 1 % (0-5); % LYMPHS 1 % (24-48); % MONOS 9 % (0-10); % SEGS 84 % (35-66); ANISOCYTOSIS MOD; PLATELET CLUMP PRESENT; PLT ESTIMATE ADEQUATE (ADEQUATE); POIKILOCYTOSIS SLIGHT
[2020-07-22 17:28] LABS: OVALOCYTES OCC; SCHISTOCYTES OCC; TARGET CELLS OCC; TEAR DROP CELLS OCC; TOXIC GRANULATION SLIGHT; TOXIC VACUOLATION SLIGHT
[2020-07-22 19:43] LABS: BILIRUBIN,URINE NEGATIVE (NEG); CLARITY,URINE CLEAR; COLOR,URINE YELLOW; NITRITE,URINE NEGATIVE (NEG); PH,URINE 5.5 (<5.0-8.0); PROTEIN,URINE NEGATIVE (NEG-TRACE); UROBILINOGEN,URINE 0.2 mg/dL (0.2 mg/dL)
[2020-07-22 19:55] LABS: BACTERIA,URINE 0 /HPF (0-FEW); RBC,URINE OCC /HPF (0-2); WBC,URINE 0 /HPF (0-4)
[2020-07-22 19:56] LABS: AMORPHOUS SEDIMENT,UR PRESENT /HPF
[2020-07-22 20:50] VITALS: BP 128/60
== END 2020-07-22 21:11 | disposition home or self-care (01) ==
LOC: ER 14:56
DX: M25.552 Pain in left hip (principal); R41.0 Disorientation, unspecified; G89.11 Acute pain due to trauma; R51.9 Headache, unspecified; M54.2 Cervicalgia; R05 Cough; R50.9 Fever, unspecified; R60.0 Localized edema; J44.9 Chronic obstructive pulmonary disease, unspecified; E78.00 Pure hypercholesterolemia, unspecified; I10 Essential (primary) hypertension; E03.9 Hypothyroidism, unspecified; I25.2 Old myocardial infarction; F17.200 Nicotine dependence, unspecified, uncomplicated; Z86.73 Personal history of transient ischemic attack (TIA), and cerebral infarction without residual deficits; W18.09XA Striking against other object with subsequent fall, initial encounter; Y93.89 Activity, other specified; Y92.89 Other specified places as the place of occurrence of the external cause; Y99.8 Other external cause status
CPT/HCPCS: 36415; 70450; 71045; 72125; 73502; 80053; 81001; 85007; 85025; 85610; 85730; 99285-25